=== PATIENT | male | born 1950 | race African-American/Black ===

== ENCOUNTER 2019-04-18 14:41 | Inpatient (IN) | payer MEDICARE ==
--- NOTE | 2019-04-18 19:28 | ULT ---
BILATERAL LOWER EXTREMITY VENOUS ULTRASOUND WITH DOPPLER: HISTORY: Edema. Swelling. COMPARISON: None. TECHNIQUE: Simon-scale, color-flow and Doppler imaging with spectral wave-form analysis was performed of the left and right lower extremity venous system. FINDINGS: RIGHT LOWER EXTREMITY: There is compressibility, presence of flow and augmentation in the common fem oral vein, femoral vein, and popliteal vein. There is flow in the greater saphenous vein, profunda f emoral vein and proximal posterior tibial vein. The mid to distal posterior tibial vein cannot be as sessed and flow is not evident due to soft tissue edema. LEFT LOWER EXTREMITY: There is compressibility, presence of flow and augmentation in the common femo ral vein, femoral vein, and popliteal vein. There is flow in the greater saphenous vein, profunda fe moral vein and proximal posterior tibial vein. The mid to distal posterior tibial vein cannot be ass essed due to soft tissue edema. IMPRESSION: Limited evaluation due to edema in both lower extremities. The mid and distal posterior tibial veins could not be assessed bilaterally. Therefore, the possibility of thrombus in either lower extremity mid to distal posterior tibial vein cannot be either confirmed or excluded. The remaining visualize d left and right lower extremity venous system did not demonstrate any thrombus. POS: PPP
[2019-04-18 19:53] LABS: #Basophils 0.1 thou/uL (0.0-0.2); #Eosinphils 0.5 thou/uL (0.0-0.7); #Monocytes 0.6 thou/uL (0.11-0.59); #Neutrophils 3.5 thou/uL (1.40-6.50); %Basophils 0.8 % (0.0-1.0); %Eosinophils 7.1 % (0.0-10.0); %Lymphocytes 30.7 % (21.0-51.0); %Monocytes 8.3 % (0.0-10.0); %Neutrophils 53.1 % (42.0-75.0); Mean Corpuscular HGB CONC 32.4 g/dL (32.0-36.0); Mean Corpuscular Hemoglobin 28.9 pg (27.0-31.0); Mean Corpuscular Volume 89.2 fL (78.0-98.0); Mean Platelet Volume 7.8 fL (7.4-10.4); Platelet Count 240 thou/uL (130-400); Red Blood Cell (RBC) Count 4.83 mill/uL (4.70-6.10); White Blood Cell (WBC) Count 6.6 thou/uL (4.8-10.8)
[2019-04-18 20:14] LABS: ALT (SGPT) 20 U/L (8-55); AST (SGOT) 23 U/L (5-34); Albumin 4.1 g/dL (3.4-4.8); Alkaline Phosphatase 83 U/L (40-150); Anion Gap 12 mmol/L (10-20); BUN (Urea Nitrogen) 11 mg/dL (8.4-25.7); Bilirubin, Total 0.5 mg/dL (0.2-1.2); Calc. Creatinine Clearance 0 mL/min (70-130); Calcium 9.2 mg/dL (7.8-10.44); Carbon Dioxide 24 mmol/L (23-31); Chloride 103 mmol/L (98-107); Estimated GFR-MDRD Greater than 90; Glucose 83 mg/dL (80-115); Protein, Total 8.1 g/dL (5.8-8.1); Sodium 135 mmol/L (136-145)
[2019-04-18] MEDS ORDERED: Furosemide 40 MG/4 ML VIAL ONE (20:50)
[2019-04-18] MEDS ORDERED: Nitroglycerin 2% Ointment 1 INCH/1 GM Packet ONE (20:50)
[2019-04-18 21:35] LABS: CK (CPK) 179 U/L (30-200); Lipase 8 U/L (8-78)
--- NOTE | 2019-04-18 22:10 | RAD ---
RADIOGRAPH CHEST 1 VIEW: DATE: 04/18/2019 HISTORY: 68-year-old male with dyspnea FINDINGS: The thoracic aorta is tortuous and ectatic. There is no evidence of airspace density, pulmonary edema , or pneumothorax. The lateral costophrenic angles are not effaced. Chronically elevated right hemidiaphragm with mild subsegmental atelectasis at right base. When compared to 09/22/2018, the right hemidiaphragm appears more elevated. IMPRESSION: 1) No acute pulmonary findings. 2) ectasia of thoracic aorta. 3) elevated right hemidiaphragm
[2019-04-18] MEDS ORDERED: Aspirin Chewable 81 MG TAB ONE (22:25)
[2019-04-19 01:05] VITALS: BMI 30.3
[2019-04-19] MEDS ORDERED: Guaifenesin DM 100-10/5 ML UDCUP PO PRN (14:32)
[2019-04-19] MEDS ORDERED: Senokot S 8.6-50 MG TAB PO PRN (14:32)
[2019-04-19] MEDS ORDERED: Acetaminophen 325 MG TAB PO PRN (14:32)
[2019-04-19] MEDS ORDERED: Bisacodyl 10 MG SUPP PR PRN (14:32)
--- NOTE | 2019-04-19 15:46 | HP ---
REASON FOR ADMISSION: Lower extremity edema, shortness of breath. HISTORY OF PRESENT ILLNESS: The patient gives history of progressive swelling of both lower extremities from last 3 to 4 weeks. This extended up to his scrotum as well. The patient states he is on a salt-restricted diet and follows diet as well. There are no complaints of chest pain or palpitation. He has known history of right inguinal hernia and has not been able to see a surgeon in the outpatient setting for the same. The patient states that his legs have thickened up now due to progressive swelling. He is not a good historian. PAST MEDICAL AND SURGICAL HISTORY: 1. History of CVA with prior left hemiparesis, currently not much residual left. 2. Hypertension. 3. Dyslipidemia. 4. Prior history of substance use and alcohol. CURRENT MEDICATIONS: 1. Lasix 20 mg daily. 2. Norvasc 10 mg daily. 3. Hydrochlorothiazide 25 mg daily. ALLERGIES: NO KNOWN DRUG ALLERGIES. PERSONAL HISTORY: Drinks 25-ounce beer x2 daily. Denies drug use and states he is clean for last 3 years now. Does not smoke. He lives alone. FAMILY HISTORY: Mother in her 70s and father in his 90s, both from old age as far as he knows. The patient himself is not . He has 3 boys and 2 girls. The older daughter committed suicide. The power of surveillance systems engineer is his niece, Ms. Jaycob Romero. The patient states he is not in contact with his children. CODE STATUS: Full. REVIEW OF SYSTEMS: CONSTITUTIONAL: Negative for weight loss or gain, ability to conduct usual activities. SKIN: Negative for rash, itching. EYES: Negative for double vision, pain. ENT/MOUTH: Negative for nose bleeding, neck stiffness, pain, tenderness. CARDIOVASCULAR: Negative for palpitations, dyspnea on exertion, orthopnea. RESPIRATORY: Negative for shortness of breath, wheezing, cough, hemoptysis, fever or night sweats. GASTROINTESTINAL: Negative for poor appetite, abdominal pain, heartburn, nausea , vomiting, constipation, or diarrhea. GENITOURINARY: Negative for urgency, frequency, dysuria, nocturia. MUSCULOSKELETAL: Negative for pain, swelling. NEUROLOGIC/PSYCHIATRIC: Negative for anxiety, depression. ALLERGY/IMMUNOLOGIC: Negative for skin rash, bleeding tendency. PHYSICAL EXAMINATION: GENERAL: The patient is a 68-year-old male, who is currently not in any acute distress. VITAL SIGNS: Blood pressure 148/80, pulse 60 per minute, respiratory rate 16 per minute, temperature 98.1 degrees Fahrenheit, saturating 97% on room air. NECK: Supple. No elevated JVD. HEENT: Eyes; extraocular muscles intact. Pupils reacting to light. Oral cavity; mucous membranes are moist. No exudates or congestion. CARDIOVASCULAR SYSTEM: S1-S2 heard. Regular rhythm. RESPIRATORY SYSTEM: Air entry 1+ bilateral. No rales or rhonchi. ABDOMEN: Soft. Bowel sounds heard. No tenderness, rigidity, or guarding. The patient has inguinal hernia on the right side. EXTREMITIES: There is 2+ peripheral edema. No calf tenderness. VASCULAR SYSTEM: Peripheral pulses 1+ bilateral. No ischemic ulcerations or gangrene. CENTRAL NERVOUS SYSTEM: No gross focal deficits noted. The patient is thin, moving all 4 extremities. PSYCHIATRIC SYSTEM: The patient's mood is euthymic. No hallucinations or delusions. LABORATORY DATA: EKG done shows sinus bradycardia at 51 beats per minute. White count of 6.6, hemoglobin 14, hematocrit 43, platelet count 240, MCV is 89 with 53% neutrophils. Electrolytes are stable. BUN 11. Creatinine 0.9. Troponin x1 negative. Liver enzymes are within normal limits. BNP is 105. Albumin is 4.1. IMAGING STUDIES: Chest x-ray done shows no acute pulmonary findings. Ultrasound venous Doppler of both lower extremities was limited due to edema. CLINICAL IMPRESSION AND PLAN: The patient will be admitted to telemetry for lower extremity edema which is progressively getting worse with shortness of breath. He also has right inguinal hernia. He has had a recent followup with Dr. Bejarano on March 23 and has had an echocardiogram done which showed an EF of 65% with moderate tricuspid regurgitation. The patient is scheduled for outpatient cardiac catheterization sometime in June per patient. We will place him on Lasix 40 mg at 6 a.m. and 2 p.m. We will also add a dose of Zaroxolyn for 2 days to help with diuresis. We will continue aspirin, Lipitor, and lisinopril for now. The patient likely has chronic lymphedema versus venous stasis edema, both of which is unclear clinically at present due to severe thickening of the skin with poor visualization of underlying structures. Job ID: [id number] [facility]
--- NOTE | 2019-04-19 18:16 | CON ---
DATE OF CONSULTATION: PRIMARY CARE DOCTOR: Dr. Mattson. PRIMARY CONCERT PROMOTER: Dr. Daphne Bejarano. REASON FOR CARDIOLOGY CONSULT: CHF exacerbation. HISTORY OF PRESENT ILLNESS: Mr. Ackerman is a very present 68-year-old male with a significant history of hypertension, CVA in 2016 with left-sided weakness,and cocaine abuse, quit 2016. The patient was followed up with Dr. Bejarano on 03/10/2019 for complaint of lower extremity edema for 5 months. The patient had echocardiogram done on 03/23/2019 with EF of 65% and diastolic dysfunction. The patient was doing well until couple of days ago. The patient's lower extremities are getting worse with discomfort. Today, the patient went to his PCP for further evaluation and treatment. The patient's PCP recommended the patient to present to the emergency department for further evaluation and treatment. The patient's BNP in the ER was 105. The patient received Lasix 40 mg IV push in the ER. He reports that his swelling in the lower extremities improved since that medication. Prior to present to the patient's primary care doctor's office today, the patient denied shortness of breath, chest pain, dizziness, lightheadedness, palpitation, fluttering in his chest, or any other complaints. The patient had echocardiogram done on 03/23/2019 with EF 65%, diastolic dysfunction, normal aortic and mitral valve regurgitation, and the patient had [id number]-[id number] tricuspid regurgitation. Per the patient, he never had any stress test or any other cardiac workup besides echocardiogram in 03/2019. The patient had a carotid Doppler study in 2016, which shows no significant stenosis seen in the bilateral ICA. The patient had a venogram done today, showing no thrombosis. PAST MEDICAL HISTORY: 1. Hypertension. 2. CVA in 2016 with left-sided weakness. 3. Cocaine drug abuse, which the patient quit in 2015. SURGICAL HISTORY: He never had any surgery before. FAMILY HISTORY: There are no significant cardiovascular disease in his family. SOCIAL HISTORY: He is single. He has 5 children who live well. He denied tobacco or illicit drug abuse at this moment. He drinks 1 large beer at least once a day, over the weekend he drinks a 6 pack of beer a day. He does not exercise and he does not watch his fluid or salt intake. He usually received food from food [employer], so he cannot watch his salt intake per the patient. ALLERGY: No known drug allergies. HOME MEDICATIONS: 1. Lasix 20 mg once a day. 2. Amlodipine 10 mg once a day. 3. Hydrochlorothiazide 25 mg once a day. 4. Ibuprofen as needed for the pain. REVIEW OF SYSTEMS: A 12-point review of systems is negative unless otherwise mentioned in HPI. The patient uses a walker due to the history of CVA in 2016. Otherwise, he does not have any significant complaints in the last 3 months except the lower extremity edema. PHYSICAL EXAMINATION: VITAL SIGNS: Blood pressure 148/81, temperature 97.6, pulse is 50 to 60, respiratory rate 16, and O2 saturation 95% on room air. GENERAL: The patient is alert and oriented x4, in no acute distress. HEAD: Normocephalic and atraumatic. EYES: Extraocular muscle movement intact. He uses glasses. NECK: Supple. Normal range of motion. No JVD. ENT and MOUTH: Oral and nasal mucosa moist without lesion. RESPIRATORY: Clear to auscultate bilaterally. No wheezing, rales, or rhonchi noted. CARDIOVASCULAR: Regular rate and rhythm. Normal S1 and S2. There is no S3 or S4. No significant murmur, hives, or thrill noted. 2+ pulses in bilateral upper extremities and right lower extremity. He has 1+ pulses in left dorsal pedis pulses and 2+ posterior tibial in popliteal arteries. He has nonpitting bilateral lower extremities with tightness and several blisters on his lower extremities. Carotid pulses are present without bruit or thrill. ABDOMEN: Soft and nontender. No mass to palpate. Bowel sounds are present. MUSCULOSKELETAL: The patient able to move all extremities without difficulty. The patient denies any claudication in the lower extremities. PSYCHIATRIC: The patient's mood is appropriate. NEUROLOGIC: The patient is alert and oriented x4. Nonfocal. LABORATORY DATA: WBC 6.6, hemoglobin 14.0, hematocrit 43.1, and platelets 240. Sodium 135, potassium 4.0, BUN 11, and creatinine 0.92. AST 23, ALT 20, and creatine kinase 179. Troponin is negative. BNP is 105. The patient's chest x-ray shows no acute pulmonary finding. Ectasia of thoracic aorta. Elevated right hemidiaphragm. ASSESSMENT AND PLAN: 1. Fbecc-uj-zwotzqn diastolic heart failure. The patient's condition is stable at this moment with room air. The patient states the patient's lower extremities have improved with Lasix IV. He has been on Lasix 40 IV push twice a day since today. The patient is on lisinopril 5 mg once a day and he is not on beta-chasity at this moment due to the bradycardia. The patient's creatinine level is stable at this moment. 2. Hypertension. The patient's blood pressure is stable with current medication. 3. ETOH abuse. ETOH cessation education given to the patient. Thank you very much for Cardiology Service to participate in the care of patient. We will follow along the patient's care team and make further recommendations as appropriate. Job ID: [id number]
[2019-04-19] MEDS: Atorvastatin Calcium 10 MG TAB PO SCH (19:57)
[2019-04-19] MEDS: Famotidine 20 MG TAB PO SCH (19:57)
--- NOTE | 2019-04-19 22:07 | CON ---
DATE OF CONSULTATION: 04/19/2019 INDICATION FOR CONSULTATION: A 68-year-old patient with lower extremity edema and evidence of possible congestive heart failure. HISTORY OF PRESENT ILLNESS: This very unfortunate 68-year-old gentleman, who has been noncompliant with medical management and watching his fluid intake. He has a history of hypertension. He suffered a CVA in 2016. He has had some history of cocaine abuse also in 2016. He was seen previously in the office and had an echocardiogram performed, which showed an ejection fraction of about 65%. He does have diastolic dysfunction. He has had the history of diastolic dysfunction. He does have some [id number]-[id number] tricuspid valve regurgitation. He was being evaluated, I believe to undergo a stress test. I do not believe the stress test has yet been performed. He apparently over the last several days has noted that he had had increasing swelling in the lower extremities. However, he was seen in the office back on the 10 of March of this year. He also had significant lower extremity edema. He also had a venogram performed, which showed no evidence of thrombosis. He certainly may have some evidence of venous insufficiency. However, it appears this may be more due to his diastolic heart failure. At this time, he denied any chest pain. He mainly came into the emergency room , he said because his legs were hurting, because they were so edematous. He has had improvement now that he has been given IV diuretics and the legs were elevated. PAST MEDICAL HISTORY: Please refer to the notes dictated by the nurse Mike chase. SOCIAL HISTORY: Please refer to the notes dictated by the nurse Mike chase. FAMILY HISTORY: Please refer to the notes dictated by the nurse Mike chase. REVIEW OF SYSTEMS: Please refer to the notes dictated by the nurse Mike chase. MEDICATIONS: Please refer to the notes dictated by the nurse Mike chase. ALLERGIES: PLEASE REFER TO THE NOTES DICTATED BY THE NURSE MIKE CHASE. PHYSICAL EXAMINATION: GENERAL: Reveals an elderly gentleman, in no acute distress at this time. He is alert and oriented. VITAL SIGNS: Blood pressure 142/81. He is afebrile. Heart rates in the 60s, shows a normal sinus rhythm, O2 saturation 95%, respiratory rate 16. HEENT: Unremarkable. He is normocephalic and atraumatic. He has no JVD noted. The carotid pulses are present. CHEST: Clear to auscultation without rales, rhonchi, or wheezing. CARDIOVASCULAR: Reveals a regular rate and rhythm. He had no significant murmurs, heaves, thrills, bruits, or rubs. He does have a soft systolic murmur at the apex. ABDOMEN: Soft and nontender. Positive bowel sounds are present. EXTREMITIES: Show no clubbing or cyanosis. He does have 2 to 3+ lower extremity edema, which is chronic in nature with skin thickening due to the chronic edema. Pedal pulses are difficult to palpate, but are present. NEUROLOGIC: The patient appears to be intact. SKIN: Warm and dry. LABORATORY DATA: Shows a creatinine of 0.92, hemoglobin 14. BNP was 105. Chest x-ray was unremarkable. IMPRESSION: 1. Sprxv-kh-vimnhsd heart failure, which is most likely diastolic in nature with lower extremity edema. We would agree with diuretics at this time. We will continue his other medications. We will add a beta chasity, if at all possible. However, his heart rate has been in the 50s and would not be a good idea in this patient who is already bradycardic. Renal function appears to be normal. May add a low dose of Ranexa, if he continues to have symptoms once he is volume restricted and then understands he cannot be taking increased salt in load, then perhaps his symptoms will improve and once the blood pressure also remains under control, he was also advised that he needs to decrease his amount of alcohol intake. We more than happy to continue to follow the patient with you, but will need to treat him symptomatically depending on whether or not he responds to the diuretics. Job ID: [id number] [facility]
[2019-04-20 05:19] LABS: #Eosinphils 0.4 thou/uL (0.0-0.7); #Lymphocytes 1.8 thou/uL (1.20-3.40); #Monocytes 0.6 thou/uL (0.11-0.59); #Neutrophils 3.1 thou/uL (1.40-6.50); %Basophils 0.6 % (0.0-1.0); %Eosinophils 6.3 % (0.0-10.0); %Lymphocytes 30.2 % (21.0-51.0); %Monocytes 10.3 % (0.0-10.0); %Neutrophils 52.7 % (42.0-75.0); Hemoglobin 13.2 g/dL (14.0-18.0); Mean Corpuscular HGB CONC 32.5 g/dL (32.0-36.0); Mean Corpuscular Hemoglobin 28.7 pg (27.0-31.0); Mean Corpuscular Volume 88.4 fL (78.0-98.0); Mean Platelet Volume 7.9 fL (7.4-10.4); Platelet Count 231 thou/uL (130-400); RBC Distribution Width 13.1 % (11.5-14.5); Red Blood Cell (RBC) Count 4.59 mill/uL (4.70-6.10); White Blood Cell (WBC) Count 5.9 thou/uL (4.8-10.8)
[2019-04-20 05:40] LABS: Anion Gap 9 mmol/L (10-20); BUN (Urea Nitrogen) 11 mg/dL (8.4-25.7); Calc. Creatinine Clearance 99 mL/min (70-130); Calcium 8.8 mg/dL (7.8-10.44); Carbon Dioxide 26 mmol/L (23-31); Chloride 104 mmol/L (98-107); Estimated GFR-MDRD Greater than 90; Glucose 79 mg/dL (80-115); Potassium 4.3 mmol/L (3.5-5.1); Sodium 135 mmol/L (136-145)
[2019-04-20] MEDS: Furosemide 40 MG/4 ML VIAL SLOW IVP SCH ×2 (07:30→14:39)
[2019-04-20] MEDS: Famotidine 20 MG TAB PO SCH ×2 (09:38→19:49)
[2019-04-20] MEDS: Lisinopril 5 MG TAB PO SCH (09:38)
[2019-04-20] MEDS: Aspirin 81 mg Enteric Coated Tablet PO SCH (09:38)
[2019-04-20] MEDS: Enoxaparin Sodium 40 MG/0.4 ML SYRINGE SC SCH (09:39)
--- NOTE | 2019-04-20 11:20 | PDOC.CPN ---
- Subjective Date: 04/20/19 Time: 11:23 Interval history: The pt seen and examined. No overnight events. No cardiac complaints. His BLE edema have been improving - Objective Allergies/Adverse Reactions: Allergies Allergy/AdvReac Type Severity Reaction Status Date / Time No Known Allergies Allergy Verified 02/13/14 15:33 Visit Medications: Current Medications Acetaminophen (Tylenol) 650 mg PO Q4H PRN PRN Reason: Headache/Fever/Mild Pain (1-3) Aspirin (Ecotrin) 81 mg PO DAILY [facility] Last Admin: 04/20/19 09:38 Dose: 81 mg Atorvastatin Calcium (Lipitor) 10 mg PO HS [facility] Last Admin: 04/19/19 19:57 Dose: 10 mg Bisacodyl (Dulcolax) 10 mg [place] DAILYPRN PRN PRN Reason: Constipation Carvedilol (Coreg) 3.125 mg PO BID-[facility] Enoxaparin Sodium (Lovenox) 40 mg SC 0900 [facility] Last Admin: 04/20/19 09:39 Dose: 40 mg Famotidine (Pepcid) 20 mg PO BID [facility] Last Admin: 04/20/19 09:38 Dose: 20 mg Furosemide (Lasix) 40 mg SLOW IVP 0600,1400 [facility] Last Admin: 04/20/19 07:30 Dose: 40 mg Guaifenesin/Dextromethorphan (Robitussin Dm) 15 ml PO Q4H PRN PRN Reason: Cough Lisinopril (Zestril) 5 mg PO DAILY [facility] Last Admin: 04/20/19 09:38 Dose: 5 mg Senna/Docusate Sodium (Senokot S) 2 tab PO BID PRN PRN Reason: Constipation Vital Signs & Weight: Vital Signs Temp Pulse Resp BP BP Pulse Ox 04/20/19 09:38 65 143/89 H 04/20/19 07:32 97.4 F L 65 18 143/89 H 95 04/20/19 04:00 58 L 16 148/88 H 98 04/20/19 03:00 58 L 16 148/88 H 98 04/20/19 00:00 53 L 16 Weight 190 lb 1.6 oz - Physical Exam General: alert & oriented x3 Cardiac: S1/S2 Lungs: clear to auscultation Musculoskeletal: decreased range of motion - Labs Result Diagrams: 04/20/19 04:58 04/20/19 04:58 Troponin/CKMB Troponin I Less than 0.010 ng/mL (< 0.028) 04/18/19 21:13 - Telemetry Sinus rhythms and dysrhythmias: sinus rhythm - Assessment/Plan Assessment/Plan: 1. Acute on Chronic diastolic HF - improving with Lasix 40mg IV BID and Lisinopril 5mg qd; will start coreg 3.125mg BID for hx of CHF and tachycardia with movement 2. HTN - will start Coreg 3.125mg BID from today 3. hx of CVA in 2016 - 4. ETOH abuse - Strongly recommend ETOH cessation MAR reviewed Pt. seen and eval. by me. I agree with the A/P by the CHIEF CREDIT OFFICER. Legs are less edematous. No chest discomfort or SOB. Chest clear. RRR.
--- NOTE | 2019-04-20 13:54 | PDOC.HOSPP ---
- Subjective Encounter Date: 04/20/19 Encounter Time: 11:30 Subjective: no sob, is diuresing well ambulating in room - Objective Vital Signs & Weight: Vital Signs (12 hours) Temp Pulse Pulse Pulse Resp BP BP 04/20/19 11:33 97.4 F L 70 18 04/20/19 10:40 72 80 175/99 H 04/20/19 09:38 65 143/89 H 04/20/19 07:32 97.4 F L 65 18 04/20/19 04:00 58 L 16 04/20/19 03:00 58 L 16 BP BP BP Pulse Ox 04/20/19 11:33 136/92 H 98 04/20/19 10:40 149/105 H 04/20/19 09:38 04/20/19 07:32 143/89 H 95 04/20/19 04:00 148/88 H 98 04/20/19 03:00 148/88 H 98 Weight Weight 190 lb 1.6 oz I&O: 04/19/19 04/20/19 04/21/19 06:59 06:59 06:59 Intake Total 0 920 Output Total 750 1850 Balance -750 -930 Result Diagrams: 04/20/19 04:58 04/20/19 04:58 Hospitalist ROS - Medication Medications: Active Medications Generic Name Dose Route Start Last Admin Trade Name [place] PRN Reason Stop Dose Admin Aspirin 81 mg 04/20/19 09:00 04/20/19 09:38 Ecotrin PO 81 mg DAILY TAMIA Administration Atorvastatin Calcium 10 mg 04/19/19 21:00 04/19/19 19:57 Lipitor PO 10 mg HS TAMIA Administration Enoxaparin Sodium 40 mg 04/20/19 09:00 04/20/19 09:39 Lovenox SC 40 mg 0900 TAMIA Administration Famotidine 20 mg 04/19/19 21:00 04/20/19 09:38 Pepcid PO 20 mg BID TAMIA Administration Furosemide 40 mg 04/20/19 06:00 04/20/19 07:30 Lasix SLOW IVP 40 mg 0600,1400 TAMIA Administration Lisinopril 5 mg 04/20/19 09:00 04/20/19 09:38 Zestril PO 5 mg DAILY TAMIA Administration - Exam General Appearance: NAD, awake alert Eye: PERRL, anicteric sclera ENT: normocephalic atraumatic, no oropharyngeal lesions Neck: supple, no JVD Heart: RRR, no murmur Respiratory: no wheezes, no rales Gastrointestinal: soft, non-tender, normal bowel sounds Gastrointestinal - other findings: large inguinal hernia Extremities: no cyanosis, 2+ LE edema Neurological: CN's grossly intact, no focal deficits Hosp A/P (1) Acute exacerbation of CHF (congestive heart failure) Code(s): I50.9 - HEART FAILURE, UNSPECIFIED Status: Acute Qualifiers: Heart failure type: diastolic Qualified Code(s): I50.33 - Acute on chronic diastolic (congestive) heart failure (2) H/O: CVA (cerebrovascular accident) Code(s): Z86.73 - PRSNL HX OF TIA (TIA), AND CEREB INFRC W/O RESID DEFICITS Status: Chronic (3) Dyslipidemia Code(s): E78.5 - HYPERLIPIDEMIA, UNSPECIFIED Status: Chronic (4) Lower extremity edema Code(s): R60.0 - LOCALIZED EDEMA Status: Acute (5) Hypertension Code(s): I10 - ESSENTIAL (PRIMARY) HYPERTENSION Status: Chronic Qualifiers: Hypertension type: essential hypertension Qualified Code(s): I10 - Essential (primary) hypertension - Plan continue iv lasix, sera hose to LE likely has component of either lymphatic or venous stasis in LE, will need outpt w/u for the same on asp, lipitor, lisinopril pt is bradycardic, no BB hemostable Likely dc plan in am if stable and ambulating well
[2019-04-20] MEDS: Carvedilol 3.125 MG TAB PO SCH (16:22)
[2019-04-20] MEDS: Atorvastatin Calcium 10 MG TAB PO SCH (19:49)
[2019-04-21 05:01] LABS: Anion Gap 12 mmol/L (10-20); BUN (Urea Nitrogen) 12 mg/dL (8.4-25.7); Calc. Creatinine Clearance 82 mL/min (70-130); Calcium 9.6 mg/dL (7.8-10.44); Carbon Dioxide 29 mmol/L (23-31); Chloride 99 mmol/L (98-107); Estimated GFR-MDRD 88; Glucose 74 mg/dL (80-115); Potassium 3.7 mmol/L (3.5-5.1); Sodium 136 mmol/L (136-145)
[2019-04-21] MEDS: Furosemide 40 MG/4 ML VIAL SLOW IVP SCH (06:24)
[2019-04-21 07:07] VITALS: BP 144/90; TEMP 97.5
[2019-04-21] MEDS ORDERED: Sodium Chloride 0.9% 10 ML ONE (07:52)
[2019-04-21] MEDS: Enoxaparin Sodium 40 MG/0.4 ML SYRINGE SC SCH (08:44)
[2019-04-21] MEDS: Carvedilol 3.125 MG TAB PO SCH (08:44)
[2019-04-21] MEDS: Famotidine 20 MG TAB PO SCH (08:44)
[2019-04-21] MEDS: Lisinopril 5 MG TAB PO SCH (08:44)
[2019-04-21] MEDS: Aspirin 81 mg Enteric Coated Tablet PO SCH (08:44)
--- NOTE | 2019-04-21 11:20 | PDOC.CPN ---
- Subjective Date: 04/21/19 Time: 11:20 Interval history: The pt seen and examined. No overnight events. No cardiac complaints. - Objective Allergies/Adverse Reactions: Allergies Allergy/AdvReac Type Severity Reaction Status Date / Time No Known Allergies Allergy Verified 02/13/14 15:33 Visit Medications: Current Medications Acetaminophen (Tylenol) 650 mg PO Q4H PRN PRN Reason: Headache/Fever/Mild Pain (1-3) Aspirin (Ecotrin) 81 mg PO DAILY [facility] Last Admin: 04/21/19 08:44 Dose: 81 mg Atorvastatin Calcium (Lipitor) 10 mg PO HS [facility] Last Admin: 04/20/19 19:49 Dose: 10 mg Bisacodyl (Dulcolax) 10 mg [place] DAILYPRN PRN PRN Reason: Constipation Carvedilol (Coreg) 3.125 mg PO BID-[facility] Last Admin: 04/21/19 08:44 Dose: 3.125 mg Enoxaparin Sodium (Lovenox) 40 mg SC 0900 [facility] Last Admin: 04/21/19 08:44 Dose: 40 mg Famotidine (Pepcid) 20 mg PO BID [facility] Last Admin: 04/21/19 08:44 Dose: 20 mg Furosemide (Lasix) 40 mg PO 0900,1400 [facility] Guaifenesin/Dextromethorphan (Robitussin Dm) 15 ml PO Q4H PRN PRN Reason: Cough Lisinopril (Zestril) 5 mg PO DAILY [facility] Last Admin: 04/21/19 08:44 Dose: 5 mg Senna/Docusate Sodium (Senokot S) 2 tab PO BID PRN PRN Reason: Constipation Vital Signs & Weight: Vital Signs Temp Pulse Resp BP Pulse Ox 04/21/19 08:45 110 H 04/21/19 08:44 59 L 04/21/19 07:01 97.5 F L 59 L 18 144/90 H 97 04/21/19 03:15 98.6 F 56 L 14 132/84 97 04/21/19 00:00 97.7 F 60 14 139/97 H 95 Weight 182 lb 9.6 oz - Physical Exam General: alert & oriented x3 Neck: supple neck Cardiac: regular rate and rhythm, S1/S2 Lungs: clear to auscultation Skin: other (BLE edema with Stasis dermatitis) Musculoskeletal: normal range of motion - Labs Result Diagrams: 04/20/19 04:58 04/21/19 03:49 Troponin/CKMB Troponin I Less than 0.010 ng/mL (< 0.028) 04/18/19 21:13 - Telemetry Sinus rhythms and dysrhythmias: sinus rhythm - Assessment/Plan Assessment/Plan: 1. Acute on Chronic diastolic HF - improving with Lasix 40mg IV BID, Lisinopril 5mg qd, and coreg 3.125mg BID for hx of CHF and tachycardia with movement; Lasix will be changed to PO from this afternoon. 2. HTN - stable with Lisinopril and Coreg 3.125mg BID 3. hx of CVA in 2016 - 4. ETOH abuse - Strongly recommend ETOH cessation MAR reviewed * The pt may d/c home tomorrow
[2019-04-21] MEDS ORDERED: Furosemide 40 MG TAB PO SCH (14:00)
--- NOTE | 2019-04-23 15:27 | EKG ---
Test Reason : Blood Pressure : / mmHG Vent. Rate : 051 BPM Atrial Rate : 051 BPM P-R Int : 238 ms QRS Dur : 098 ms QT Int : 482 ms P-R-T Axes : 032 -14 030 degrees QTc Int : 444 ms Sinus bradycardia with 1st degree A-V block Nonspecific T wave abnormality Abnormal ECG Confirmed by MIQUEL NJ, LUDIVINA ([id number]), film and video editor ANJUM TELLES ([id number]) on 04/23/2019 3:26:34 PM Referred By: Confirmed By:LUDIVINA LAFLEUR MD
== END 2019-04-21 13:08 | disposition home or self-care (01) | DRG 293 ==
LOC: ERS 14:41 → 2NO 04-19 01:00
PROVIDERS: ADMIT Hospitalist; ATTEND Hospitalist
DX: I11.0 Hypertensive heart disease with heart failure (principal); I50.33 Acute on chronic diastolic (congestive) heart failure; I25.10 Atherosclerotic heart disease of native coronary artery without angina pectoris; F10.10 Alcohol abuse, uncomplicated; E78.5 Hyperlipidemia, unspecified; K40.90 Unilateral inguinal hernia, without obstruction or gangrene, not specified as recurrent; F14.10 Cocaine abuse, uncomplicated; Z86.73 Personal history of transient ischemic attack (TIA), and cerebral infarction without residual deficits; Z91.14 Patient's other noncompliance with medication regimen
CPT/HCPCS: 36415; 71045; 80048; 80053; 82550; 83690; 83880; 84484; 85025; 93005; 93798; 93970; 96374; J1650; J1940

== ENCOUNTER 2020-08-12 18:30 | Inpatient (IN) | payer MEDICARE ==
[~2020-08-12 18:30] MED LIST: Iopamidol-370 76% 500 ML 1 ML ONE
[2020-08-12] MEDS ORDERED: Ondansetron PF 4 MG/2 ML Vial ONE ×2 (18:35→18:37)
[2020-08-12] MEDS ORDERED: niCARdipine 20MG In NaCl 20 MG/200 ML BAG ONE (18:40)
--- NOTE | 2020-08-12 18:54 | CT ---
CT HEAD WITHOUT IV CONTRAST COMPARISON: 07/10/2016. HISTORY: Level 1 stroke. Left-sided weakness and left-sided facial droop. Vomiting. Hypertension. TECHNIQUE: Axial CT imaging at 5 mm intervals from vertex through skull base without contrast FINDINGS: There is an oval-shaped area of increased density seen in the left cerebellar hemisphere measuring 3. 6 cm x 2.1 cm in greatest axial dimensions most compatible with parenchymal hematoma. Adjacent edema is present. There is mass effect on the left cerebellar hemisphere including mild mass effect o n the fourth ventricle. No additional intraparenchymal or extra-axial hemorrhage is identified. There is decreased attenuation in the periventricular white matter which is nonspecific but likely re flective of chronic small vessel ischemic changes. Low-attenuation area is seen in the right periventricular white matter likely due to cavitated remote white matter infarction. There is no evid ence of an acute cortical infarction. No midline shift is seen There is mild cerebral volume loss. The ventricular system is normal in size, shape, and position for the degree of sulcal atrophy. Skull base has a normal CT appearance. Visualized paranasal sinuses are clear. Osseous structures appear intact. No calvarial fracture is seen. IMPRESSION: 1. Parenchymal hematoma and adjacent edema in the left cerebellar hemisphere. This does result in mil d mass effect on the left cerebellar hemisphere and the fourth ventricle. Differential considerations would include trauma, coagulopathy, or possibly underlying lesion. Follow-up evaluatio n after resolution of hemorrhage is recommended with MRI with and without IV contrast. 2. Chronic changes. 3. Above findings discussed with Dr. Mesa in the emergency department on 08/12/2020 at 1849 hours.
[2020-08-12 19:10] LABS: PTT 25.8 sec (22.9-36.1); Prothrombin Time 13.1 sec (12.0-14.7)
[2020-08-12] MEDS ORDERED: Promethazine HCl 25 MG/ML VIAL ONE (19:12)
[2020-08-12 19:18] LABS: #Eosinphils 0.1 thou/uL (0.0-0.7); #Lymphocytes 1.5 thou/uL (1.20-3.40); #Monocytes 0.7 thou/uL (0.11-0.59); #Neutrophils 6.2 thou/uL (1.40-6.50); %Basophils 0.2 % (0.0-1.0); %Eosinophils 1.5 % (0.0-10.0); %Lymphocytes 17.9 % (21.0-51.0); %Monocytes 8.1 % (0.0-10.0); %Neutrophils 72.4 % (42.0-75.0); Mean Corpuscular HGB CONC 33.1 g/dL (32.0-36.0); Mean Corpuscular Volume 90.6 fL (78.0-98.0); Mean Platelet Volume 5.6 fL (7.4-10.4); Platelet Count 173 thou/uL (130-400); RBC Distribution Width 12.4 % (11.5-14.5); Red Blood Cell (RBC) Count 4.33 mill/uL (4.70-6.10); White Blood Cell (WBC) Count 8.6 thou/uL (4.8-10.8)
[2020-08-12 19:25] LABS: ALT (SGPT) 16 U/L (8-55); AST (SGOT) 21 U/L (5-34); Alkaline Phosphatase 74 U/L (40-110); Anion Gap 17 mmol/L (10-20); BUN (Urea Nitrogen) 11 mg/dL (8.4-25.7); Bilirubin, Total 0.4 mg/dL (0.2-1.2); Calc. Creatinine Clearance 0 mL/min (70-130); Calcium 8.6 mg/dL (7.8-10.44); Carbon Dioxide 21 mmol/L (23-31); Chloride 103 mmol/L (98-107); Globulin 3.7 g/dL (2.4-3.5); Glucose 128 mg/dL (83-110); Magnesium 1.9 mg/dL (1.6-2.6); Potassium 3.7 mmol/L (3.5-5.1); Protein, Total 7.7 g/dL (5.8-8.1); Sodium 137 mmol/L (136-145)
--- NOTE | 2020-08-12 19:31 | CT ---
EXAM: CT angiogram head and neck with IV contrast and 3-D reconstructions PROVIDED CLINICAL HISTORY: Level 1 stroke. Left-sided weakness and facial droop. Left cerebellar hemorrhage. COMPARISON: Noncontrast CT head on this date. FINDINGS: There is a normal arrangement of the great vessels at the aortic arch which do appear patent. Left schultz bclavian artery is mostly obscured due to dense contrast in the left subclavian vein. Portion of the proximal left common carotid artery are also obscured due to adjacent artifact from venous contra st. The innominate artery and right subclavian artery as well as right common carotid artery and remainder of the left common carotid artery are widely patent. There is mild atherosclerotic plaque involving the distal common carotid arteries bilaterally. There is calcified atherosclerotic plaque at the carotid artery bifurcations. The left internal carotid artery is patent. There is only minimal narrowing of the proximal right internal carotid artery. The vertebral arteries are small in caliber bilaterally but codominant and patent. The basilar artery is miniscule in size, and the vertebral arteries predominantly terminate in PICA. There are type origins involving the bilateral posterior cerebral arteries which are patent. The bilateral middle cerebral and anterior cerebral arteries are patent. No focal intracranial aneurysm is seen. Mild groundglass densities are seen within the dependent portion of the lungs bilaterally likely rela sera to volume loss. As noted on noncontrast CT of the head, there is a parenchymal hematoma in the left cerebellar hemisp here with surrounding edema and mild mass effect on the adjacent fourth ventricle. The visualized dural venous sinuses appear patent. Multilevel degenerative changes are seen in the spine. Periapical lucency is seen involving the left maxillary molar suggesting periapical abscess. Dental c natalio are present in the right maxillary molars. IMPRESSION: 1. Mild atherosclerotic plaque in the carotid artery bifurcations bilaterally, the bilateral internal carotid arteries are patent. 2. No focal stenosis or branch occlusion is seen involving the wrangell of [place]stein. 3. Vertebral arteries are very small in caliber with very miniscule basilar artery. Prominent patent type origins of each posterior cerebral artery are seen. 4. No intracranial aneurysm is seen. 5. Left cerebellar parenchymal hemorrhage with adjacent edema. 6. Biapical lucencies suggesting peritoneal abscess involving left maxillary molar. Dental caries are seen in a right maxillary molar. 7. Above findings discussed Dr. Mesa in the emergency department on 08/12/2020 at 1928 hours. Reported By: Isaac Sanzally Signed: 08/12/2020 7:29 PM
--- NOTE | 2020-08-12 19:55 | RAD ---
EXAM: CHEST ONE VIEW HISTORY: Altered mental status. COMPARISON: 04/18/2019 FINDINGS: Cardiac silhouette is enlarged. Pulmonary vasculature is within normal limits. Mild elevation right h emidiaphragm with volume loss right lung base is again seen. Left lung is clear. Radiopaque densities overlie the left axillary region which were not seen on prior study and could be related to overlying artifact or radiopaque foreign bodies. Prominent left glenohumeral osteoarthropathy is present with degenerative changes in the spine. IMPRESSION: 1. Overall stable chest with elevation right hemidiaphragm with volume loss right lung base. 2. Mild cardiomegaly. 3. Irregular shaped densities overlying left axilla. This could be related to overlying artifact or r adiopaque foreign bodies. Clinical correlation is suggested.
[2020-08-12] MEDS ORDERED: Tranexamic Acid 1,000 MG/10 ML VIAL ONE (20:01)
[2020-08-12] MEDS ORDERED: niCARdipine 50 MG in Sodium Chloride 0.9% 250 ML 230 ML IV SCH ×2 (20:15→20:45)
[2020-08-12] MEDS ORDERED: niCARdipine 40MG In NaCl 40 MG/200 ML BAG IVPB SCH (20:15)
--- NOTE | 2020-08-12 21:01 | PDOC.HHP ---
Hospitalist HPI - History of Present Illness Altered mental status History of Present Illness: This is 70-year-old male patient with a history of stroke, hypertension who was brought in by EMS on account of altered mental status. Initial assessment on arrival noted he had an intracerebral bleed. Patient notes that he went to visit her friend and on returning suddenly fell to the floor. His friend called EMS who came in to evaluate him and brought him here for further evaluation. On the site EMS notes notes that he had fallen and hit his head with noted facial droop with left-sided weakness. Patient however tells me that he has had left-sided weakness since his previous stroke about 4 years ago. EMS noted blood pressure was 202/112, he was given labetalol 10 mg prior to transportation. At the time of my evaluation patient seems generally lucid but had slight intermittent confusion. At presentation here patient's blood pressure was 180/93, pulse 56, saturation 98 on room air with respiratory rate of 17. He was afebrile temperature of 98. His labs showed mild anemia of 13.2, otherwise no remarkable changes. CT scan of his head showed parenchymal hematoma and adjacent edema in the left cerebral hemisphere with mild mass-effect on the left cerebellar hemisphere and 4th ventricle. CTA showed mild atherosclerotic plaques in the carotid artery bifurcations bilaterally. Chest x-ray revealed overall stable elevated left hemidiaphragm with volume loss of right lung base. Patient was started on nicardipine drip for blood pressure control. Neurosurgery was consulted. Hospitalist team consulted for admission. Hospitalist ROS - Review of Systems Constitutional: denies: fever, chills, sweats, weakness Respiratory: denies: cough, shortness of breath, hemoptysis Gastrointestinal: reports: nausea. denies: vomiting, abdominal pain Neurological: reports: weakness. denies: numbness, incoordination, change in speech All other systems reviewed; all pertinent +/- noted in HPI/Subj - Medication Medications: Medications: Hospitalist History - Past Medical History Other Medical History: Stroke, hypertension - Family History Family History: reports: no pertinent history - Exam General Appearance: awake alert General - other findings: Sounds slightly confused. Eye: PERRL, anicteric sclera ENT: normocephalic atraumatic, no oropharyngeal lesions Heart: RRR, no murmur, no gallops, no rubs Respiratory: CTAB, no wheezes, no rales, tachypneic Gastrointestinal: soft, non-tender, non-distended, normal bowel sounds, no palpable masses Extremities: no cyanosis, no clubbing, no edema Neurological - other findings: Speech slightly dysarthric, no facial droop. L eft-sided residual weakness Psychiatric: A&O x 3, flat affect Hospitalist Results - Labs Result Diagrams: 08/12/20 19:03 08/12/20 18:53 Lab results: WBC 8.6 thou/uL (4.8-10.8) 08/12/20 19:03 Hgb 13.0 g/dL (14.0-18.0) L 08/12/20 19:03 Hct 39.2 % (42.0-52.0) L 08/12/20 19:03 MCV 90.6 fL (78.0-98.0) 08/12/20 19:03 Plt Count 173 thou/uL (130-400) 08/12/20 19:03 Neutrophils % 72.4 % (42.0-75.0) 08/12/20 19:03 Sodium 137 mmol/L (136-145) 08/12/20 18:53 Potassium 3.7 mmol/L (3.5-5.1) 08/12/20 18:53 Chloride 103 mmol/L (98-107) 08/12/20 18:53 Carbon Dioxide 21 mmol/L (23-31) L 08/12/20 18:53 BUN 11 mg/dL (8.4-25.7) 08/12/20 18:53 Creatinine 0.90 mg/dL (0.7-1.3) 08/12/20 18:53 Glucose 128 mg/dL (83-110) H 08/12/20 18:53 Calcium 8.6 mg/dL (7.8-10.44) 08/12/20 18:53 Total Bilirubin 0.4 mg/dL (0.2-1.2) 08/12/20 18:53 AST 21 U/L (5-34) 08/12/20 18:53 ALT 16 U/L (8-55) 08/12/20 18:53 Alkaline Phosphatase 74 U/L (40-110) 08/12/20 18:53 Troponin I Less than 0.010 ng/mL (< 0.028) 08/12/20 19:03 Serum Total Protein 7.7 g/dL (5.8-8.1) 08/12/20 18:53 Albumin 4.0 g/dL (3.4-4.8) 08/12/20 18:53 Hospitalist H&P A/P - Plan Plan: This is a 70-year-old male patient with a history of stroke, hypertension who was brought in on account of altered mental status by EMS subsequently noted to have left intracerebral hemorrhage. Intracerebral hemorrhage We will admit to ICU Start nicardipine drip to maintain blood pressure between 140 and 160. No neurosurgical intervention at the moment. Neurosurgery following. Hypertension We will treat blood pressure as above Close monitoring Acute encephalopathy Likely secondary to intracerebral bleed Significantly improvedcontinue monitoring. VT prophylaxis SCD
[2020-08-12] MEDS: Sodium Chloride 0.9% 1,000 ML IV SCH (21:08)
[2020-08-12] MEDS: niMODipine 30 MG CAP PO SCH (21:33)
[2020-08-12 22:19] LABS: SARS-CoV-2 NAA Rapid Test Not Detected (NotDetected)
--- NOTE | 2020-08-12 23:27 | CON ---
DATE OF CONSULTATION: 08/12/2020 CHIEF COMPLAINT: Altered mental status with left-sided weakness. HISTORY OF PRESENT ILLNESS: Mr. Ackerman is a 70-year-old gentleman with a history of ischemic stroke in 2016. He presents to EMS with altered mental status and left-sided weakness with an SBP of 220. The patient was brought to [facility], where his BP on arrival was SBP of 180. He tells me 3-4 hours ago, he got dizzy and fell at home. It is reported that the patient does have bedbugs. He does have some left-sided weakness and left-sided facial droop. CTA of the head indicated a small left upper cerebral hemorrhage. Per imaging shows a tiny area of potential hemosiderin on that area. This may be a cavernous malformation. The CTA shows PComm arteries on both sides. There is a diminutive bacillary artery. There was adequate room in the 4th ventricle. REVIEW OF SYSTEMS: Negative unless indicated in the above HPI. PAST MEDICAL HISTORY: Ischemic stroke in 2016 and hypertension. SURGICAL HISTORY: Unknown. HOSPITALIZATIONS: Unknown. SOCIAL HISTORY: Denies nicotine or illicit drug use. States he drinks 6-10 beers daily. MEDICATIONS: 1. Torsemide 100 mg. 2. Hydrochlorothiazide 25 mg. ALLERGIES: NO KNOWN DRUG ALLERGIES. PHYSICAL EXAMINATION: VITAL SIGNS: BP 180/93, 159/91, pulse 65, and temperature 98.4. CONSTITUTION: The patient is slightly confused. HEENT: Pupils are equal. Extraocular movements are intact. NECK: Soft, supple. No masses are noted. Range of motion is intact. NEUROLOGICAL: He is awake. The patient is oriented to person and place. Memory is slightly abnormal. Left-sided facial droop. Left-sided motor weakness. Unable to hold hand above bed for more than 3 seconds. Left lower extremity, unable to hold left lower extremity above the bed for more than 3 seconds. Equal sensation bilaterally. Decreased group exercise manager strength on the left. LABORATORY DATA: WBC 8.6, platelets 173. PT 13.1, INR 1.0, PTT 25.8, sodium 137. IMAGING: Head CT indicates a small left upper cerebral hemorrhage. Prior imaging shows a tiny area of potential hemosiderin on that area. There may be a cavernous malformation. CTA of the head shows a PComm arteries on both sides. There is diminutive bacillary artery. There is adequate room in the 4th ventricle. ASSESSMENTS: 1. Altered mental status. 2. Left-sided weakness with facial droop. 3. Left upper cerebral hemorrhage. PLAN: TXA, Cardene, morphine, Phenergan, and Zofran were given in the emergency room. Nimodipine was also started in the ED to prevent vasospasms. Cardene drip. Goal for SBP is less than 140 mmHg. Repeat the head CT and CTA in the morning for comparison. Supportive care. If BP and sodium are controlled, then there is a low probability requiring surgery. We will have EVD kit at bedside in case deterioration with worsening hydrocephalus on CT in the morning. Job ID: [id number]
[2020-08-13] MEDS: niMODipine 30 MG CAP PO SCH ×7 (00:05→23:49)
[2020-08-13 05:12] LABS: Anion Gap 17 mmol/L (10-20); BUN (Urea Nitrogen) 8 mg/dL (8.4-25.7); Calc. Creatinine Clearance 0 mL/min (70-130); Calcium 8.4 mg/dL (7.8-10.44); Carbon Dioxide 20 mmol/L (23-31); Chloride 105 mmol/L (98-107); Glucose 79 mg/dL (83-110); Potassium 4.1 mmol/L (3.5-5.1); Sodium 138 mmol/L (136-145)
[2020-08-13 05:35] LABS: #Eosinphils 0.1 thou/uL (0.0-0.7); #Lymphocytes 2.8 thou/uL (1.20-3.40); #Monocytes 1.2 thou/uL (0.11-0.59); #Neutrophils 8.2 thou/uL (1.40-6.50); %Basophils 0.2 % (0.0-1.0); %Eosinophils 0.9 % (0.0-10.0); %Lymphocytes 22.7 % (21.0-51.0); %Monocytes 9.4 % (0.0-10.0); %Neutrophils 66.8 % (42.0-75.0); Hemoglobin 14.1 g/dL (14.0-18.0); Mean Corpuscular HGB CONC 30.1 g/dL (32.0-36.0); Mean Corpuscular Volume 89.9 fL (78.0-98.0); Mean Platelet Volume 9.3 fL (7.4-10.4); Platelet Count 139 thou/uL (130-400); RBC Distribution Width 12.6 % (11.5-14.5); Red Blood Cell (RBC) Count 5.22 mill/uL (4.70-6.10); White Blood Cell (WBC) Count 12.3 thou/uL (4.8-10.8)
--- NOTE | 2020-08-13 09:10 | CT ---
PRELIMINARY REPORT/[facility]/EMERGENCY AFTER HOURS PROCEDURE: EXAMINATION Unenhanced CT brain and CTA intracranial circulation. HISTORY F/U ICH TECHNIQUE Axial CTA images of the head with intravenous contrast. Three-dimensional MIP/volume rendered reforma tions were performed. Axial computed tomography images of the head/brain performed with/without intravenous contrast. CONTRAST With; 70ML ISOVUE [address]\SR - CTA ANGIO HEAD W WO CON - 08/12/2020 06:46 PM [facility] FINDINGS: CT HEAD: BRAIN: Left cerebellar hemisphere intracranial bleed measuring 3.5 x 2.1 cm previously 3.6 x 2.1 cm. Cerebra l atrophy. Stable periventricular hypodensities due to small vessel ischemic disease. VENTRICLES: No hydrocephalus. ORBITS: The orbits are unremarkable. SINUSES AND MASTOIDS: The paranasal sinuses and mastoid air cells are clear CTA HEAD: INTERNAL CAROTID ARTERIES The intracranial ICAs are patent with no significant stenosis. No occlusion. No aneurysm. ANTERIOR CEREBRAL ARTERIES No significant stenosis. No occlusion. No aneurysm. MIDDLE CEREBRAL ARTERIES No significant stenosis. No occlusion. No aneurysm. POSTERIOR CEREBRAL ARTERIES No significant stenosis. No occlusion. No aneurysm. BASILAR ARTERY No significant stenosis. No occlusion. No aneurysm. VERTEBRAL ARTERIES No significant stenosis. No occlusion. No aneurysm. OTHER: SOFT TISSUES: No acute finding. No masses or lymphadenopathy. BONES: No acute osseous abnormality. MISCELLANEOUS There is poor dentition IMPRESSION: CTA within normal limits. Stable left cerebellar hemisphere hemorrhage. ELECTRONICALLY SIGNED BY: Sue Villalba MD Aug 13, 2020 6:37:00 AM [facility] This report is intended for review by the ordering physician only, in accordance of law. If you recei ve this report in error, please call [facility] at [phone]. FINAL REPORT CTA HEAD WITH AND WITHOUT CONTRAST: Axial tomograms were obtained through the head without contrast. This was followed by CTA head with multiplanar reconstruction and 3D post processing following cerebral angio protocol. CT HEAD WITHOUT CONTRAST: Left cerebellar intraparenchymal hematoma is again noted. CTA HEAD: Intracranial internal carotid arteries, anterior cerebral arteries, and middle cerebral arteries unre markable. Visualized vertebral arteries are patent. The basilar artery is atretic and I cannot exclude focal stenosis or occlusion in the mid basilar art tatiana. The posterior cerebral arteries appear patent. IMPRESSION: Atretic tiny basilar artery with possible stenosis or occlusion in the mid basilar artery. This was not described on the preliminary report. I am in agreement with the preliminary report other than the basilar artery findings. Findings related to the emergency department. CODE CR POS: AGW
[2020-08-13 10:21] LABS: Squamous Epithelial None Seen HPF (0-3)
[2020-08-13 10:23] LABS: Bilirubin Negative (Negative); Blood, Urine Moderate (Negative); Glucose, Urine (Dipstick) Negative (Negative); Ketone, Urine Negative (Negative); Leukocyte Small (Negative); Nitrite Positive (Negative); Protein, Urine (Dipstick) Negative (Neg-Trace); Urobilinogen 0.2 mg/dL (Less than 2)
[2020-08-13 10:44] LABS: Clarity Clear (Clear)
[2020-08-13 10:46] LABS: Specific Gravity, Urine 1.039 (1.002-1.036)
[2020-08-13 10:52] LABS: Bacteria/HPF 4+ HPF (None Seen)
[2020-08-13] MEDS ORDERED: Iopamidol-370 76% 500 ML 1 ML ONE (12:08)
[2020-08-13] MEDS: Sodium Chloride 0.9% 1,000 ML IV SCH (12:39)
--- NOTE | 2020-08-13 13:14 | PDOC.HOSPP ---
- Subjective Encounter Date: 08/13/20 Encounter Time: 13:13 Subjective: Mr. Ackerman was seen today in follow-up of ICH and elevated blood pressure. He says he feels fine. He denies headache, or dizziness. He denies any new weakness in his extremities. - Objective Vital Signs & Weight: Vital Signs (12 hours) Temp Pulse Resp BP Pulse Ox 08/13/20 09:00 98.5 F 47 L 19 166/86 H 96 Weight Weight 190 lb 14.725 oz Result Diagrams: 08/13/20 04:44 08/13/20 04:44 Additional Labs: Accuchecks 08/12/20 18:34 POC Glucose 107 H Hospitalist ROS - Medication Medications: Active Medications Generic Name Dose Route Start Last Admin Trade Name Freq PRN Reason Stop Dose Admin Sodium Chloride 1,000 mls @ 70 mls/hr 08/12/20 20:45 08/13/20 12:39 Normal Saline 0.9% IV 1,000 mls .[id number] TAMIA Administration Nimodipine 60 mg 08/12/20 20:45 08/13/20 10:27 Nimodipine 30 Mg Cap PO 60 mg Q4H TAMIA Administration - Exam Eye: PERRL, anicteric sclera Heart: RRR, no murmur, no gallops, no rubs, normal peripheral pulses Respiratory: CTAB, no wheezes, no rales, no ronchi, normal chest expansion, no tachypnea Gastrointestinal: soft, non-tender, non-distended, normal bowel sounds, no palpable masses, no hepatomegaly Extremities: no cyanosis, no edema Neurological: cranial nerve grossly intact Neurological - other findings: + mild weakness in the left lower extremity, but still 5/5 Musculoskeletal: no muscle wasting Psychiatric: normal affect, normal behavior, A&O x 3 Hosp A/P (1) ICH (intracerebral hemorrhage) Code(s): I61.9 - NONTRAUMATIC INTRACEREBRAL HEMORRHAGE, UNSPECIFIED Status: Acute (2) Hypertension Code(s): I10 - ESSENTIAL (PRIMARY) HYPERTENSION Status: Chronic Qualifiers: Hypertension type: essential hypertension Qualified Code(s): I10 - Essential (primary) hypertension - Plan * ICH- possibly due to hypertension. He does not have any new neurological deficits. Neurosurgery evaluation noted. He will likely not need surgical intervention * Will hold diuretics for now, and monitor his electrolytes carefully * HTN- will add Lisinopril, and Hydralazine as needed, and begin to determine an out patient antihypertensive regimen. I have counseled him extensively on the need for compliance with blood pressure medications. * PT/OT
[2020-08-13] MEDS ORDERED: Lisinopril 5 MG TAB PO SCH (13:15)
[2020-08-13] MEDS ORDERED: Lisinopril 10 MG TAB ONE (14:04)
[2020-08-13 16:45] VITALS: BMI 26.8
--- NOTE | 2020-08-14 00:12 | PRG ---
DATE OF SERVICE: 08/13/2020 Mr. Ackerman was admitted yesterday evening for acute onset of altered mental status and was found to have an intracerebral hemorrhage typically to the left cerebellar hemisphere with no mass effect on the 4th ventricle. No surrounding vasogenic edema. There is some suggestion of possible either vascular malformation or cavernoma to the medial aspect of the hemorrhage. Repeat CT scan was performed this morning at 0500, which reveals stable hemorrhage from reports from hospitalist staff and nursing staff. Examinations remained stable. No intervention at this time from Neurosurgery. Job ID: [id number]
[2020-08-14] MEDS: Sodium Chloride 0.9% 1,000 ML IV SCH ×2 (03:24→16:53)
[2020-08-14] MEDS: niMODipine 30 MG CAP PO SCH (04:06)
[2020-08-14] MEDS: hydrALAZINE 25 MG TAB PO PRN ×3 (04:18→18:13)
[2020-08-14 07:07] LABS: #Eosinphils 0.1 thou/uL (0.0-0.7); #Lymphocytes 1.4 thou/uL (1.20-3.40); #Monocytes 0.8 thou/uL (0.11-0.59); #Neutrophils 6.6 thou/uL (1.40-6.50); %Eosinophils 0.8 % (0.0-10.0); %Lymphocytes 15.7 % (21.0-51.0); %Monocytes 8.5 % (0.0-10.0); Hemoglobin 15.5 g/dL (14.0-18.0); Mean Corpuscular Hemoglobin 28.9 pg (27.0-31.0); Mean Corpuscular Volume 90.3 fL (78.0-98.0); Mean Platelet Volume 8.4 fL (7.4-10.4); Platelet Count 196 thou/uL (130-400); RBC Distribution Width 12.6 % (11.5-14.5); Red Blood Cell (RBC) Count 5.36 mill/uL (4.70-6.10); White Blood Cell (WBC) Count 8.8 thou/uL (4.8-10.8)
[2020-08-14 07:21] LABS: Anion Gap 15 mmol/L (10-20); BUN (Urea Nitrogen) 9 mg/dL (8.4-25.7); Calc. Creatinine Clearance 88 mL/min (70-130); Calcium 8.7 mg/dL (7.8-10.44); Carbon Dioxide 22 mmol/L (23-31); Chloride 106 mmol/L (98-107); Glucose 91 mg/dL (83-110); Potassium 3.9 mmol/L (3.5-5.1); Sodium 139 mmol/L (136-145)
--- NOTE | 2020-08-14 07:43 | PRG ---
DATE OF SERVICE: 08/14/2020 I personally interviewed and examined the patient this morning. I agree with previous notes of Vick Lowry and Rashard Swanson PA-C Briefly, Ta Ackerman is a 70-year-old gentleman brought with hypertensive episode and a left superior cerebellar hemorrhage two days ago. He has been stable since his admission and followup CT scans do not show any enlargement of the hemorrhage nor is there any compression of the fourth ventricle and there is no hydrocephalus. Overnight, I do not see any fevers recorded. Blood pressures have been in the 140s to 160s. On examination, Mr. Ackerman has some dysmetria on the left. He does not have any cranial neuropathies. I did not find any new motor or sensory deficits. There are no new labs to report this morning. CT angiography done twice does not reveal aneurysm or obvious AVM. Interestingly, there are PCOMs on both sides, which fill the top of the basilar. The central portion of the basilar artery is quite narrow and falls out on the CT angiogram. The PICA vessels and the AICA vessels fill from the vertebrals and the inferior basilar. I reassured Mr. Ackerman that he does not need surgical intervention for this hemorrhage. He will need rehabilitation to make him safe for activities of daily living. He will need aggressive blood pressure control. I am going to follow up in four weeks' time with a noncontrast CT scan. Once all the blood products are gone on the CT, we will get an MRI scan to see if there is an underlying cavernoma. There is a hint of this on prior imaging from years ago. He does not need neurosurgical intervention. Job ID: [id number] [facility]
[2020-08-14] MEDS ORDERED: Lisinopril 5 MG TAB PO SCH (09:00)
[2020-08-14] MEDS ORDERED: FLU VACC QS2020-21(65YR UP)/PF 240 MCG/0.7 ML SYRINGE IM ONE (09:00)
[2020-08-14] MEDS ORDERED: Amlodipine 5 MG TAB PO SCH ×2 (09:00→14:45)
--- NOTE | 2020-08-14 09:48 | PDOC.HOSPP ---
- Subjective Encounter Date: 08/14/20 Encounter Time: 09:47 Subjective: Mr. Ackerman was seen today in follow-up of ICH and hypertension. He does not have any complaints. He denies any weakness in his extremities. - Objective Vital Signs & Weight: Vital Signs (12 hours) Temp Pulse Resp BP BP Pulse Ox 08/14/20 07:40 97.5 F L 57 L 20 151/91 H 97 08/14/20 06:30 132/86 08/14/20 04:18 55 L 161/96 H 08/14/20 03:57 98.5 F 55 L 20 161/96 H 94 L 08/14/20 00:00 98.8 F 61 18 160/90 H 95 Weight Weight 186 lb 11.2 oz I&O: 08/13/20 08/14/20 08/15/20 06:59 06:59 06:59 Intake Total 529 960 Output Total 600 950 Balance -71 10 Result Diagrams: 08/14/20 06:44 08/14/20 06:44 Hospitalist ROS - Medication Medications: Active Medications Generic Name Dose Route Start Last Admin Trade Name Freq PRN Reason Stop Dose Admin Amlodipine Besylate 5 mg 08/14/20 09:00 08/14/20 08:25 Amlodipine 5 Mg Tab PO 5 mg DAILY TAMIA Administration Hydralazine HCl 25 mg 08/13/20 13:10 08/14/20 04:18 Hydralazine 25 Mg Tab PO 25 mg TIDPRN PRN Administration SBP GREATER THAN 160 Sodium Chloride 1,000 mls @ 70 mls/hr 08/12/20 20:45 08/14/20 03:24 Normal Saline 0.9% IV 1,000 mls .[id number] TAMIA Administration Lisinopril 5 mg 08/14/20 09:00 08/14/20 08:25 Lisinopril 5 Mg Tab PO 5 mg DAILY TAMIA Administration - Exam Eye: PERRL, anicteric sclera Heart: RRR, no murmur, no gallops, no rubs, normal peripheral pulses Respiratory: CTAB, no wheezes, no rales, no ronchi, normal chest expansion, no tachypnea Gastrointestinal: soft, non-tender, non-distended, normal bowel sounds, no palpable masses, no hepatomegaly Extremities: no cyanosis, no edema Neurological: no weakness Musculoskeletal: normal strength, no muscle wasting Psychiatric: normal affect, A&O x 3 Hosp A/P (1) ICH (intracerebral hemorrhage) Code(s): I61.9 - NONTRAUMATIC INTRACEREBRAL HEMORRHAGE, UNSPECIFIED Status: Acute (2) Hypertension Code(s): I10 - ESSENTIAL (PRIMARY) HYPERTENSION Status: Chronic Qualifiers: Hypertension type: essential hypertension Qualified Code(s): I10 - Essential (primary) hypertension - Plan * ICH- possibly due to hypertension. No neurological deficits * HTN- blood pressure is not optimally controlled- will add Amlodipine, and discontinue Nimodipine, and titrate the medications as needed * PT/OT * Home when ok by Neurosurgery team
[2020-08-14] MEDS ORDERED: Enalaprilat Dihydrate 1.25 MG/ML VIAL SLOW IVP PRN (14:28)
[2020-08-14] MEDS ORDERED: hydrALAZINE 20 MG/ML VIAL SLOW IVP PRN (14:29)
[2020-08-14] MEDS: Acetaminophen 325 MG TAB PO PRN (22:08)
[2020-08-14] MEDS: Lisinopril 5 MG TAB PO SCH (22:08)
[2020-08-15] MEDS: Sodium Chloride 0.9% 1,000 ML IV SCH (06:10)
--- NOTE | 2020-08-15 08:04 | PRG ---
DATE OF SERVICE: 08/15/2020 Mr. Ackerman is still in stroke unit this morning. He is admitted with a left superior cerebellar hemorrhage without obstruction of the 4th ventricle. He has been convalescing and he has not had neurological deterioration. No events were reported overnight. Mr. Ackerman is frustrated that he is left in bed 24 hours a day and his back is starting to hurt. He feels like he needs to move around more. Overnight, the maximum temperature was 100.9 degrees Fahrenheit. Blood pressures have been in the 120s to 160s. On examination, there is some dysmetria on the left. I do not find any new neurological deficits. Mr. Ackerman has been resting for long enough that ultrasound of lower extremities seems reasonable. Aggressive physical therapy, occupational therapy, and sitting in a bedside chair would be helpful to him. More helpful would be placed when in inpatient rehabilitation and that can happen any time. There is no need for neurosurgical intervention. Job ID: [id number] [facility]
[2020-08-15] MEDS ORDERED: Amlodipine 10 MG TAB PO SCH (09:00)
[2020-08-15] MEDS: hydrALAZINE 25 MG TAB PO SCH ×3 (09:26→20:32)
[2020-08-15] MEDS: Lisinopril 5 MG TAB PO SCH (09:27)
--- NOTE | 2020-08-15 10:47 | CT ---
EXAM: CT angiogram head and neck with IV contrast and 3-D reconstructions PROVIDED CLINICAL HISTORY: Level 1 stroke. Left-sided weakness and facial droop. Left cerebellar hemorrhage. COMPARISON: Noncontrast CT head on this date. FINDINGS: There is a normal arrangement of the great vessels at the aortic arch which do appear patent. Left schultz bclavian artery is mostly obscured due to dense contrast in the left subclavian vein. Portion of the proximal left common carotid artery are also obscured due to adjacent artifact from venous contra st. The innominate artery and right subclavian artery as well as right common carotid artery and remainder of the left common carotid artery are widely patent. There is mild atherosclerotic plaque involving the distal common carotid arteries bilaterally. There is calcified atherosclerotic plaque at the carotid artery bifurcations. The left internal carotid artery is patent. There is only minimal narrowing of the proximal right internal carotid artery. The vertebral arteries are small in caliber bilaterally but codominant and patent. The basilar artery is miniscule in size, and the vertebral arteries predominantly terminate in PICA. There are type origins involving the bilateral posterior cerebral arteries which are patent. The bilateral middle cerebral and anterior cerebral arteries are patent. No focal intracranial aneurysm is seen. Mild groundglass densities are seen within the dependent portion of the lungs bilaterally likely rela sera to volume loss. As noted on noncontrast CT of the head, there is a parenchymal hematoma in the left cerebellar hemisp here with surrounding edema and mild mass effect on the adjacent fourth ventricle. The visualized dural venous sinuses appear patent. Multilevel degenerative changes are seen in the spine. Periapical lucency is seen involving the left maxillary molar suggesting periapical abscess. Dental c natalio are present in the right maxillary molars. IMPRESSION: 1. Mild atherosclerotic plaque in the carotid artery bifurcations bilaterally, but the bilateral inte rnal carotid arteries are patent. 2. No focal stenosis or branch occlusion is seen involving the [place] of [place]. 3. Vertebral arteries are very small in caliber with very miniscule basilar artery. Prominent patent type origins of each posterior cerebral artery are seen. 4. No intracranial aneurysm is seen. 5. Left cerebellar parenchymal hemorrhage with adjacent edema. 6. Biapical lucencies suggesting peritoneal abscess involving left maxillary molar. Dental caries are seen in a right maxillary molar. 7. Above findings discussed Dr. Mesa in the emergency department on 08/12/2020 at 1928 hours. Transcribed Date/Time: 08/15/2020 10:47 AM
--- NOTE | 2020-08-15 11:05 | ULT ---
EXAM: Bilateral lower extremity venous Doppler HISTORY: Immobile/nonambulatory for 4 days. FINDINGS: Grayscale, color-flow, Doppler evaluation, spectral analysis of the bilateral lower extremity venous structures is performed with 2-D imaging. The bilateral common femoral, superficial femoral, popliteal, posterior tibial, proximal greater saphenous and profunda femoral veins are imaged. There is normal luminal compressibility, flow, and augmentation in the visualized deep venous structu res of the bilateral lower extremities. There is an anechoic collection seen within the popliteal fossa which measures 4.5 cm x 3 cm x 2 cm d emonstrating thickened lorenzo and bandlike area increased echogenicity centrally which may represent septation or debris. No flow is seen on color flow evaluation. Findings are likely related to a mildl y complicated Daniels's cyst IMPRESSION: 1. No evidence of a deep vein thrombosis in the visualized deep venous structures bilateral lower ext remities. 2. Probable mildly complex Daniels's cyst right popliteal fossa.
[2020-08-15 12:35] LABS: Anion Gap 18 mmol/L (10-20); BUN (Urea Nitrogen) 16 mg/dL (8.4-25.7); Calc. Creatinine Clearance 77 mL/min (70-130); Calcium 8.8 mg/dL (7.8-10.44); Carbon Dioxide 22 mmol/L (23-31); Chloride 104 mmol/L (98-107); Glucose 82 mg/dL (83-110); Potassium 3.8 mmol/L (3.5-5.1); Sodium 140 mmol/L (136-145)
[2020-08-15] MEDS: Acetaminophen 325 MG TAB PO PRN (13:59)
[2020-08-15 14:06] LABS: #Basophils 0.1 thou/uL (0.0-0.2); #Lymphocytes 2.5 thou/uL (1.20-3.40); #Monocytes 1.8 thou/uL (0.11-0.59); #Neutrophils 8.7 thou/uL (1.40-6.50); %Basophils 0.5 % (0.0-1.0); %Eosinophils 0.3 % (0.0-10.0); %Lymphocytes 18.9 % (21.0-51.0); %Monocytes 13.7 % (0.0-10.0); %Neutrophils 66.5 % (42.0-75.0); Hemoglobin 16.1 g/dL (14.0-18.0); Mean Corpuscular HGB CONC 31.7 g/dL (32.0-36.0); Mean Corpuscular Hemoglobin 28.5 pg (27.0-31.0); Mean Corpuscular Volume 90.1 fL (78.0-98.0); Mean Platelet Volume 8.3 fL (7.4-10.4); Platelet Count 192 thou/uL (130-400); RBC Distribution Width 12.7 % (11.5-14.5); Red Blood Cell (RBC) Count 5.66 mill/uL (4.70-6.10); White Blood Cell (WBC) Count 13.1 thou/uL (4.8-10.8)
--- NOTE | 2020-08-15 14:29 | RAD ---
EXAM: Portable chest PROVIDED CLINICAL HISTORY: Fever COMPARISON: 08/12/2020 FINDINGS: The lungs are hypoinflated. Cardiac and mediastinal silhouette is within normal limits. Subsegmental atelectasis versus consolidation at the right lung base. No pleural fluid or pneumothorax apparent. IMPRESSION: Hypoinflated exam with subsegmental atelectasis versus pneumonia right lung base.
[2020-08-15 14:58] LABS: Bacteria/HPF 4+ HPF (None Seen); Bilirubin Negative (Negative); Blood, Urine 3+ (Negative); Clarity Turbid (Clear); Glucose, Urine (Dipstick) Normal (Negative); Ketone, Urine Negative (Negative); Leukocyte 500 Leu/uL (Negative); Nitrite 2+ (Negative); Protein, Urine (Dipstick) 20 mg/dL (Neg-Trace); RBC/HPF Greater than 50 HPF (0-3); Specific Gravity, Urine 1.018 (1.002-1.036); Squamous Epithelial None Seen HPF (0-3); Urobilinogen Normal mg/dL (Less than 2); WBC/HPF Greater than 50 HPF (0-3); pH, Urine 6.5 (5.0-9.0)
[2020-08-15 14:59] LABS: Urine Culture Reflex Yes Yes
[2020-08-15] MEDS ORDERED: cefTRIAXone\\ROCEPHIN 2 GM in Sodium Chloride 0.9% 100 ML IVPB SCH (16:00)
[2020-08-15] MEDS ORDERED: Doxycycline 100 MG CAP PO SCH (16:00)
--- NOTE | 2020-08-15 18:05 | PDOC.HOSPP ---
- Subjective Encounter Date: 08/15/20 Encounter Time: 13:00 Subjective: Patient seen and examined for intracranial bleed. RN reported fever along with elevated blood pressure. Denies any headache, nausea or vomiting. No chest pain shortness of breath or palpitations reported. - Objective Vital Signs & Weight: Vital Signs (12 hours) Temp Pulse Resp BP BP Pulse Ox 08/15/20 16:50 98.9 F 87 18 136/91 H 92 L 08/15/20 13:59 101.0 F H 80 161/91 H 08/15/20 12:59 101.0 F H 80 20 161/91 H 94 L 08/15/20 09:27 155/90 H 08/15/20 09:26 155/90 H 94 L 08/15/20 07:38 99.7 F H 68 15 155/90 H 94 L Weight Weight 184 lb 6.4 oz I&O: 08/14/20 08/15/20 08/16/20 06:59 06:59 06:59 Intake Total 529 3509 2310 Output Total 600 2300 450 Balance -71 1209 1860 Result Diagrams: 08/15/20 13:53 08/15/20 11:52 Additional Labs: Abnormal Lab Results - Last 48 hrs 08/14/20 06:44: Carbon Dioxide 22 L 08/14/20 06:44: Lymphocytes % 15.7 L, Neutrophils # 6.6 H, Monocytes # 0.8 H 08/15/20 11:52: Carbon Dioxide 22 L 08/15/20 13:53: WBC 13.1 H, MCHC 31.7 L, Lymphocytes % 18.9 L, Monocytes % 13.7 H, Neutrophils # 8.7 H, Monocytes # 1.8 H 08/15/20 14:18: Urine Clarity Turbid A, Urine Blood 3+ A, Urine Nitrite 2+ A, Ur Leukocyte Esterase 500 A, Urine RBC Greater than 50 A, Urine WBC Greater than 50 A, Amorphous Crystals Rare A, Urine Bacteria 4+ A, Urine Culture Reflexed Yes A Radiology Reviewed by me: Yes (Chest x-ray showed suspected right lower lobe pneumonia) EKG Reviewed by me: Yes (Sinus rhythm on telemetry) Hospitalist ROS - Review of Systems Cardiovascular: denies: chest pain, palpitations, orthopnea, paroxysmal noc. dyspnea, edema, light headedness, other Gastrointestinal: denies: nausea, vomiting, abdominal pain, diarrhea, constipation, melena, hematochezia, other - Medication Medications: Active Medications Generic Name Dose Route Start Last Admin Trade Name Freq PRN Reason Stop Dose Admin Acetaminophen 650 mg 08/14/20 21:07 08/15/20 13:59 Acetaminophen 325 Mg Tab PO 650 mg Q6H PRN Administration .FEVER Amlodipine Besylate 10 mg 08/15/20 09:00 08/15/20 09:26 Amlodipine 10 Mg Tab PO 10 mg DAILY TAMIA Administration Enalaprilat 1.25 mg 08/14/20 14:28 08/14/20 16:51 Enalaprilat Dihydrate 1.25 Mg/Ml Vial SLOW IVP 1.25 mg Q6H PRN Administration SBP > 150 Hydralazine HCl 25 mg 08/13/20 13:10 08/14/20 18:13 Hydralazine 25 Mg Tab PO 25 mg TIDPRN PRN Administration SBP GREATER THAN 160 Hydralazine HCl 25 mg 08/15/20 09:00 08/15/20 13:59 Hydralazine 25 Mg Tab PO 25 mg TID TAMIA Administration Ceftriaxone Sodium 2 gm/ 100 mls @ 200 mls/hr 08/15/20 16:00 08/15/20 16:45 Sodium Chloride IVPB 100 mls Q24HR TAMIA Administration Lisinopril 5 mg 08/14/20 21:00 08/15/20 09:27 Lisinopril 5 Mg Tab PO 5 mg BID TAMIA Administration - Exam General Appearance: NAD Neck: supple, symmetric, no JVD Heart: RRR, no gallops, normal peripheral pulses Respiratory: no wheezes, no tachypnea, rales (At right base), rhonchi Gastrointestinal: soft, non-tender, normal bowel sounds, no guarding, no rigidity Extremities: no cyanosis, no clubbing, no edema Extremities - other findings: No calf tenderness Neurological: no new deficit Musculoskeletal: generalized weakness Psychiatric: normal affect, A&O x 3 Hosp A/P - Plan DVT proph w/SCDs (No Lovenox due to intracranial bleed) Patient is a 70-year-old male with hypertension presented to the emergency room with altered mentation on 08/12. His blood pressure by EMS was 202/112. CT head without contrast showed parenchymal hematoma and adjacent edema in the left cerebellar hemisphere. CT angiogram of the head and neck was negative for an eurysm or hemodynamically significant stenosis. Please refer to the history and physical for further details. The patient was monitored in the intensive care unit. He was placed on nicardipine drip. He was evaluated by neurosurgery. There was no neurosurgical intervention needed. Later on he was transferred to stroke floor. Patient was found to have intermittent fever since 08/14. His temperature on 08/15 was 101. Urinalysis showed greater than 50 WBCs and RBCs with 4+ bacteria. Chest x-ray showed possible right lung base infiltrate. He has been started on ceftriaxone and doxycycline. 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 Patient also has leukocytosis with WBC 13.1.? Sepsis Hypertension with hypertensive emergency on admission Plan: Continue amlodipine 10 mg daily. Discontinue IV fluids. Empiric antibiotics due to abnormal chest x-ray and UA. Increase lisinopril to 10 mg twice daily. Add hydralazine due to uncontrolled blood pressure. Went venous Doppler negative for DVT. Continue physical therapy. DC to nursing home facility once medically stable continue other medications as above
[2020-08-15] MEDS: Senokot S 8.6-50 MG TAB PO SCH (20:31)
[2020-08-15] MEDS: Doxycycline 100 MG CAP PO SCH (20:31)
[2020-08-15] MEDS: Lisinopril 10 MG TAB PO SCH (20:32)
[2020-08-16 05:33] LABS: ALT (SGPT) 8 U/L (8-55); AST (SGOT) 11 U/L (5-34); Albumin 3.6 g/dL (3.4-4.8); Alkaline Phosphatase 67 U/L (40-110); Anion Gap 16 mmol/L (10-20); BUN (Urea Nitrogen) 15 mg/dL (8.4-25.7); Bilirubin, Total 1.2 mg/dL (0.2-1.2); CRP (Inflammatory) 21.12 mg/dL (= or < 0.5); Calc. Creatinine Clearance 86 mL/min (70-130); Calcium 8.7 mg/dL (7.8-10.44); Carbon Dioxide 21 mmol/L (23-31); Chloride 103 mmol/L (98-107); Globulin 3.9 g/dL (2.4-3.5); Glucose 97 mg/dL (83-110); Potassium 3.8 mmol/L (3.5-5.1); Protein, Total 7.5 g/dL (5.8-8.1); Sodium 136 mmol/L (136-145)
[2020-08-16] MEDS: Acetaminophen 325 MG TAB PO PRN (05:39)
[2020-08-16 06:13] LABS: Hemoglobin 16.5 g/dL (14.0-18.0); Mean Corpuscular HGB CONC 31.1 g/dL (32.0-36.0); Mean Corpuscular Hemoglobin 27.9 pg (27.0-31.0); Mean Corpuscular Volume 89.9 fL (78.0-98.0); Mean Platelet Volume 8.6 fL (7.4-10.4); Platelet Count 172 thou/uL (130-400); RBC Distribution Width 12.6 % (11.5-14.5); Red Blood Cell (RBC) Count 5.91 mill/uL (4.70-6.10)
[2020-08-16 06:15] LABS: Band 2 % (5-11); Lymphocytes 13 % (21-51); MDiff Complete? YES; Monocytes 17 % (0-10); Neutrophil 68 % (42-75)
[2020-08-16] MEDS: Senokot S 8.6-50 MG TAB PO SCH ×2 (08:56→21:46)
[2020-08-16] MEDS: Polyethylene Glycol 3350 17 GM Packet PO SCH (08:56)
[2020-08-16] MEDS: Doxycycline 100 MG CAP PO SCH ×2 (08:56→21:46)
[2020-08-16] MEDS: Lisinopril 10 MG TAB PO SCH ×3 (08:57→21:46)
[2020-08-16] MEDS: Amlodipine 5 MG TAB PO SCH ×2 (10:39→21:47)
[2020-08-16] MEDS ORDERED: cefTRIAXone\\ROCEPHIN 2 GM in Sodium Chloride 0.9% 100 ML IVPB SCH (12:45)
--- NOTE | 2020-08-16 18:59 | PDOC.HOSPP ---
- Subjective Encounter Date: 08/16/20 Encounter Time: 11:30 Subjective: Patient seen and examined for intracranial bleed. No new focal deficit. Mild dry cough. Denies any fever or chills. No headache or blurring of vision - Objective Vital Signs & Weight: Vital Signs (12 hours) Temp Pulse Pulse Pulse Resp BP BP 08/16/20 15:27 99.0 F 70 16 08/16/20 12:00 98.0 F 64 16 08/16/20 10:40 121/85 08/16/20 10:39 68 121/85 08/16/20 08:57 86 77 130/91 H 08/16/20 08:56 08/16/20 08:00 98.0 F 81 16 BP BP BP BP Pulse Ox Pulse Ox Pulse Ox 08/16/20 15:27 111/83 97 08/16/20 12:00 112/78 97 08/16/20 10:40 08/16/20 10:39 08/16/20 08:57 111/81 98 96 08/16/20 08:56 98 08/16/20 08:00 97/75 97 Weight Weight 184 lb 6.4 oz I&O: 08/15/20 08/16/20 08/17/20 06:59 06:59 06:59 Intake Total 3509 2440 Output Total 2300 1200 Balance 1209 1240 Result Diagrams: 08/16/20 04:31 08/16/20 04:31 Additional Labs: Abnormal Lab Results - Last 48 hrs 08/15/20 11:52: Carbon Dioxide 22 L 08/15/20 13:53: WBC 13.1 H, MCHC 31.7 L, Lymphocytes % 18.9 L, Monocytes % 13.7 H, Neutrophils # 8.7 H, Monocytes # 1.8 H 08/15/20 14:18: Urine Clarity Turbid A, Urine Blood 3+ A, Urine Nitrite 2+ A, Ur Leukocyte Esterase 500 A, Urine RBC Greater than 50 A, Urine WBC Greater than 50 A, Amorphous Crystals Rare A, Urine Bacteria 4+ A, Urine Culture Reflexed Yes A 08/16/20 04:31: Hct 53.1 H, MCHC 31.1 L, Band Neuts % (Manual) 2 L, Lymphocytes % (Manual) 13 L, Monocytes % (Manual) 17 H 08/16/20 04:31: Carbon Dioxide 21 L, C-Reactive Protein 21.12 H, Globulin 3.9 H, Albumin/Globulin Ratio 0.9 L Microbiology - Entire Visit 08/15/20 14:59 Urine barrientos catheter Urine Culture - Preliminary Gram Negative [place] 08/15/20 14:35 Venous blood - Right Arm Blood Culture - Preliminary Specimen has been received and culture in progress. No Growth to date. 08/15/20 14:35 Venous blood - Right Hand Blood Culture - Preliminary Specimen has been received and culture in progress. No Growth to date. EKG Reviewed by me: Yes (Sinus rhythm on telemetry) Hospitalist ROS - Review of Systems Cardiovascular: denies: chest pain, palpitations, orthopnea, paroxysmal noc. dyspnea, edema, light headedness, other Gastrointestinal: denies: nausea, vomiting, abdominal pain, diarrhea, constipation, melena, hematochezia, other - Medication Medications: Active Medications Generic Name Dose Route Start Last Admin Trade Name Freq PRN Reason Stop Dose Admin Acetaminophen 650 mg 08/14/20 21:07 08/16/20 05:39 Acetaminophen 325 Mg Tab PO 650 mg Q6H PRN Administration .FEVER Amlodipine Besylate 5 mg 08/16/20 09:00 08/16/20 10:39 Amlodipine 5 Mg Tab PO 5 mg BID TAMIA Administration Doxycycline Hyclate 100 mg 08/15/20 21:00 08/16/20 08:56 Doxycycline 100 Mg Cap PO 100 mg BID TAMIA Administration Enalaprilat 1.25 mg 08/14/20 14:28 08/14/20 16:51 Enalaprilat Dihydrate 1.25 Mg/Ml Vial SLOW IVP 1.25 mg Q6H PRN Administration SBP > 150 Hydralazine HCl 25 mg 08/13/20 13:10 08/14/20 18:13 Hydralazine 25 Mg Tab PO 25 mg TIDPRN PRN Administration SBP GREATER THAN 160 Hydralazine HCl 25 mg 08/15/20 09:00 08/15/20 20:32 Hydralazine 25 Mg Tab PO 25 mg TID TAMIA Administration Lisinopril 10 mg 08/15/20 21:00 08/16/20 10:40 Lisinopril 10 Mg Tab PO 10 mg BID TAMIA Administration Polyethylene Glycol 17 gm 08/16/20 09:00 08/16/20 08:56 Polyethylene Glycol 3350 17 Gm Packet PO 17 gm DAILY TAMIA Administration Senna/Docusate Sodium 2 tab 08/15/20 21:00 08/16/20 08:56 Senokot S 8.6-50 Mg Tab PO 2 tab BID TAMIA Administration Sodium Chloride 10 ml 08/12/20 20:53 08/16/20 09:00 Flush - Normal Saline 10 Ml Syringe IVF 10 ml PRN PRN Administration Saline Flush - Exam General Appearance: NAD Heart: RRR, no gallops Respiratory: no wheezes, no ronchi, rhonchi Gastrointestinal: soft, non-distended Extremities: no cyanosis Neurological: no new deficit Musculoskeletal: generalized weakness Psychiatric: normal affect, A&O x 3 Hosp A/P - Plan DVT proph w/SCDs Patient is a 70-year-old male with hypertension presented to the emergency room with altered mentation on 08/12. His blood pressure by EMS was 202/112. CT head without contrast showed parenchymal hematoma and adjacent edema in the left cere bellar hemisphere. CT angiogram of the head and neck was negative for aneurysm or hemodynamically significant stenosis. Please refer to the history and physical for further details. The patient was monitored in the intensive care unit. He was placed on nicardipine drip. He was evaluated by neurosurgery. There was no neurosurgical intervention needed. Later on he was transferred to stroke floor. Patient was found to have intermittent fever since 08/14. His temperature on 08/15 was 101. Urinalysis showed greater than 50 WBCs and RBCs with 4+ bacteria. Chest x-ray showed possible right lung base infiltrate. He has been started on ceftriaxone and doxycycline. Impression: Left superior cerebellar hemorrhage without obstruction of the fourth ventricle Encephalopathy due to above Sepsis due to right lower lobe pneumonia ? Gram-negative with UTI Hypertension with hypertensive emergency on admission Plan: Continue ceftriaxone with doxycycline. Await cultures. Continue amlodipine. Hold hydralazine due to blood pressure on the lower side. Continue lisinopril. Patient is stable for discharge to inpatient rehab pending bed. Discharge paperwork completed. Continue other medications as above. Follow-up with cultures as outpatient
[2020-08-17 05:24] LABS: #Eosinphils 0.2 thou/uL (0.0-0.7); #Lymphocytes 1.9 thou/uL (1.20-3.40); #Monocytes 1.2 thou/uL (0.11-0.59); #Neutrophils 4.6 thou/uL (1.40-6.50); %Basophils 0.5 % (0.0-1.0); %Lymphocytes 24.4 % (21.0-51.0); %Monocytes 14.5 % (0.0-10.0); %Neutrophils 57.6 % (42.0-75.0); Hemoglobin 14.2 g/dL (14.0-18.0); Mean Corpuscular HGB CONC 30.9 g/dL (32.0-36.0); Mean Corpuscular Hemoglobin 27.7 pg (27.0-31.0); Mean Corpuscular Volume 89.5 fL (78.0-98.0); Mean Platelet Volume 8.7 fL (7.4-10.4); Platelet Count 212 thou/uL (130-400); RBC Distribution Width 12.4 % (11.5-14.5); Red Blood Cell (RBC) Count 5.14 mill/uL (4.70-6.10); White Blood Cell (WBC) Count 7.9 thou/uL (4.8-10.8)
[2020-08-17 05:50] LABS: ALT (SGPT) 10 U/L (8-55); AST (SGOT) 15 U/L (5-34); Albumin 3.4 g/dL (3.4-4.8); Alkaline Phosphatase 61 U/L (40-110); Anion Gap 14 mmol/L (10-20); BUN (Urea Nitrogen) 19 mg/dL (8.4-25.7); Bilirubin, Total 0.7 mg/dL (0.2-1.2); Calc. Creatinine Clearance 79 mL/min (70-130); Calcium 8.8 mg/dL (7.8-10.44); Carbon Dioxide 24 mmol/L (23-31); Chloride 101 mmol/L (98-107); Glucose 97 mg/dL (83-110); Potassium 4.2 mmol/L (3.5-5.1); Protein, Total 7.4 g/dL (5.8-8.1); Sodium 135 mmol/L (136-145)
[2020-08-17] MEDS ORDERED: cefTRIAXone\\ROCEPHIN 2 GM in Sodium Chloride 0.9% 100 ML IVPB SCH (09:15)
[2020-08-17] MEDS: Amlodipine 5 MG TAB PO SCH (10:01)
[2020-08-17] MEDS: Polyethylene Glycol 3350 17 GM Packet PO SCH (10:01)
[2020-08-17] MEDS: Doxycycline 100 MG CAP PO SCH (10:02)
[2020-08-17] MEDS: Senokot S 8.6-50 MG TAB PO SCH (10:02)
[2020-08-17] MEDS: Lisinopril 10 MG TAB PO SCH (10:02)
--- NOTE | 2020-08-17 15:53 | PDOC.DS.DS ---
Provider - Provider Date of Admission: 08/12/20 19:43 Date of Discharge: 08/17/20 Admitting Provider: Aidan Deng MD Consultations: Other (Neurosurgery) Primary Care Physician: Clarke Conn DO Course - Hospital Course Hospital Course: Patient is a 70-year-old male with hypertension presented to the emergency room with altered mentation on 08/12. His blood pressure by EMS was 202/112. CT head without contrast showed parenchymal hematoma and adjacent edema in the left cerebellar hemisphere. CT angiogram of the head and neck was negative for aneurysm or hemodynamically significant stenosis. Please refer to the history and physical for further details. The patient was monitored in the intensive care unit. He was placed on kayla ardipine drip. He was evaluated by neurosurgery. There was no neurosurgical intervention needed. Later on he was transferred to stroke floor. Patient was found to have intermittent fever since 08/14. His temperature on 08/15 was 101. Urinalysis showed greater than 50 WBCs and RBCs with 4+ bacteria. Chest x-ray showed possible right lung base infiltrate. He was started on ceftriaxone and doxycycline. Antibiotics have been transitioned to oral. He appears stable for transfer to inpatient rehab. Mentation is stable at this time. Patient was advised to follow-up with neurosurgery as outpatient. 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 Gram-negative with UTI Hypertension with hypertensive emergency on admission - Labs Lab Results: 08/17/20 04:53 08/17/20 04:53 Abnormal Lab Results - Last 48 hrs 08/16/20 04:31: Hct 53.1 H, MCHC 31.1 L, Band Neuts % (Manual) 2 L, Lymphocytes % (Manual) 13 L, Monocytes % (Manual) 17 H 08/16/20 04:31: Carbon Dioxide 21 L, C-Reactive Protein 21.12 H, Globulin 3.9 H, Albumin/Globulin Ratio 0.9 L 08/17/20 04:53: MCHC 30.9 L, Monocytes % 14.5 H, Monocytes # 1.2 H 08/17/20 04:53: Sodium 135 L, Globulin 4.0 H, Albumin/Globulin Ratio 0.9 L Microbiology - Entire Visit 08/15/20 14:35 Venous blood - Right Arm Blood Culture - Preliminary NO GROWTH AT 48 HOURS 08/15/20 14:35 Venous blood - Right Hand Blood Culture - Preliminary NO GROWTH AT 48 HOURS 08/15/20 14:59 Urine barrientos catheter Urine Culture - Final Klebsiella pneumoniae ssp pneu - Physical Exam Vitals: Vital Signs (12 hours) Temp Pulse Resp BP BP BP Pulse Ox 08/17/20 12:10 98.2 F 80 20 148/105 H 97 08/17/20 10:02 148/93 H 08/17/20 10:01 59 L 148/93 H 08/17/20 08:00 97.7 F 59 L 16 148/93 H 97 08/17/20 04:00 98.6 F 57 L 16 126/86 93 L Weight Weight 185 lb Physical Exam: The patient was seen and examined on the day of discharge. Plan - Discharge Medications Prescriptions: cloNIDine [Catapres] 0.1 mg PO BID PRN #20 tab PRN Reason: Sbp Greater Than 160 Saccharomyces boulardii [Florastor] 250 mg PO DAILY #30 cap Lisinopril/Hydrochlorothiazide [Lisinopril-Hctz 20-25 mg Tab] 1 tablet PO DAILY #30 tablet Cefdinir [Omnicef] 300 mg PO BID #10 cap Home Medications: Medication Instructions Recorded Confirmed Type Acetaminophen [Tylenol Regular 650 mg PO Q6H PRN tab 08/15/20 Rx Strength] Lisinopril/Hydrochlorothiazide 1 tablet PO DAILY #30 tablet 08/15/20 Rx [Lisinopril-Hctz 20-25 mg Tab] Amlodipine [Norvasc] 5 mg PO BID tab 08/16/20 Rx Cefdinir [Omnicef] 300 mg PO BID #10 cap 08/16/20 Rx Doxycycline [Vibramycin] 100 mg PO BID cap 08/16/20 Rx Saccharomyces boulardii [Florastor] 250 mg PO DAILY #30 cap 08/16/20 Rx cloNIDine [Catapres] 0.1 mg PO BID PRN #20 tab 08/16/20 Rx hydrALAZINE [Apresoline] 25 mg PO TIDPRN PRN tab 08/16/20 Rx Allergies: No Known Allergies Allergy (Verified 08/13/20 08:55) - Discharge Instructions Discharge Instructions:: BMP after 3-4 days - PCP to arrange/follow Follow up on blood/urine cultures - Follow up Plan Referrals: Clarke Conn DO [Primary Care Provider] - 7 Days Jose Antonio Olson MD [Active] - 2-3 Weeks Disposition: REHABILITATION INPATIENT Quality - Care Measures CORE MEASURES:: N/A
[2020-08-17 16:24] VITALS: TEMP 98.1
[2020-08-17 17:11] VITALS: BP 144/98
--- NOTE | 2020-08-20 06:20 | PQF ---
CLINICAL DOCUMENTATION CLARIFICATION FORM: Dear : Connor Ascencio Date / Time: 08/20/20 06:19 Please exercise your independent, professional judgment in responding to the clarification form. Clinical indicators are provided on the bottom of this form for your review Please check appropriate box(es): [ ] Sepsis due to [ x ] PNA [ x ] Gram negative UTI [ ] Both PNA and gram negative UTI [ ] Other diagnosis, please specify [ ] Unable to determine In addition, please specify: Present on Admission (POA): [ x ] Yes [ ] No [ ] Unable to determine Physician Signature: Date/Time: For continuity of documentation, please document condition throughout progress notes and discharge summary. Thank You. To be completed by CDI/Coding staff for physician review: Present Clinical Indicators - Signs / Symptoms / Labs Results and Location in Medical Record [x] Sepsis due to right lower lobe PNA? Gram negative UTI DS 08/12 [x] Chest Xray: Subsegmental atelectasis vs. consolidation at the right lung base Chest Xray 08/15 [x] intermittent fever since 08/14 DS 08/12 [x] Patient also has leukocytosis with WBC 13.1? Sepsis PN 08/15 [x] Temp=98.8 YS=097/94 Respi=20 Pulse=55 Vital Signs 08/13 [x] WBC: 08/13=12.3 08/15=13.1 Laboratory 08/13 [x] Blood culture: no growth Laboratory 08/15 [x] Urine culture: Klebsiella Laboratory 08/15 Present Risk Factors Results and Location in Medical Record [x] 70 years old male DS 08/17 [x] ICH PN 08/13 [x] UTI DS 08/17 [x] PNA DS 08/17 Present Treatments Results and Location in Medical Record [x] IVF MAR 08/12 [x] Rocephin 2gm IV OCT 08 [x] Doxycyline 100mg IV OCT 08 CDS/Three Knife Trimmer Signature:Russell Ronquillo Phone #: [phone] Date/Time:08/20/20 This is a permanent part of the Medical Record [facility]
--- NOTE | 2020-08-20 06:22 | PQF ---
CLINICAL DOCUMENTATION CLARIFICATION FORM: Dear : Connor Ascencio Date / Time: 08/20/20 06:21 Please exercise your independent, professional judgment in responding to the clarification form. Clinical indicators are provided on the bottom of this form for your review Please check appropriate box(es): [ ] Non traumatic left cerebellar hemorrhage [ ] Traumatic left cerebellar hemorrhage [ ] With LOC, please specify: [ ] Without LOC [ ] Other diagnosis [ x ] Unable to determine Physician Signature: Date/Time: For continuity of documentation, please document condition throughout progress notes and discharge summary. Thank You. To be completed by CDI/Coding staff for physician review: Present Clinical Indicators - Signs / Symptoms / Labs Results and Location in Medical Record [x] left Superior cerebellar hemorrhage without obstruction of the fourth ventricle DS 08/17 [x] presenting with AMS ED Notes 08/12 [x] GCS: 12 ED Notes 08/12 [x] NIHSS 9 ED Notes 08/12 [x] Fell on the floor HP 08/12 [x] He does have some left sided weakness and left facial droop Consult 08/12 [x] ICH possibly due to HTN PN 08/13 Present Risk Factors Results and Location in Medical Record [x] 70 years old male DS 08/17 [x] HTN DS 08/17 [x] Cerebral edema DS 08/17 [x] Old CVA ED Notes 08/12 [x] s/p fall HP 08/12 Present Treatments Results and Location in Medical Record [x] Admit to ICU HP 08/12 [x] Neuro Consult Consult 08/12 [x] Altaplase 100mg IV OCT 08 [x] Nicardipine 20mg IV OCT 08 CDS/Char House Supervisor Signature:Russell Ronquillo Phone #: [phone] Date/Time:08/20/20 This is a permanent part of the Medical Record [facility]
== END 2020-08-17 18:40 | DRG 64 ==
LOC: ERS 18:30 → ERHOLD 19:43 → 2SE 08-13 16:40
PROVIDERS: ADMIT Student in an Organized Health Care Education/Training Program; ATTEND Internal Medicine
DX: I61.4 Nontraumatic intracerebral hemorrhage in cerebellum (principal); G93.6 Cerebral edema; A41.9 Sepsis, unspecified organism; J18.9 Pneumonia, unspecified organism; I16.1 Hypertensive emergency; G93.49 Other encephalopathy; N39.0 Urinary tract infection, site not specified; I69.354 Hemiplegia and hemiparesis following cerebral infarction affecting left non-dominant side; Z23 Encounter for immunization; Z20.822 Contact with and (suspected) exposure to COVID-19; R29.810 Facial weakness; I10 Essential (primary) hypertension; R40.2362 Coma scale, best motor response, obeys commands, at arrival to emergency department; R40.2122 Coma scale, eyes open, to pain, at arrival to emergency department; R40.2242 Coma scale, best verbal response, confused conversation, at arrival to emergency department; R29.709 NIHSS score 9; Z91.81 History of falling; Z79.899 Other long term (current) drug therapy; B96.89 Other specified bacterial agents as the cause of diseases classified elsewhere
CPT/HCPCS: 36415; 36416; 51702; 70450; 70496; 70498; 71045; 80048; 80053; 81001; 81003; 81015; 83735; 84484; 85025; 85610; 85730; 86140; 87040; 87077; 87086; 87186; 90471; 90662; 90732; 93005; 93970; 94760; 96365; 96366; 96368; 96375; G0008; G0009; J0696; J2405; J2550; J2997; J3490; Q9967; U0002

== ENCOUNTER 2022-02-28 20:18 | Inpatient (IN) | payer MEDICARE ==
[~2022-02-28 20:18] MED LIST changes: +Iopamidol 370 76% 100 ML VIAL ONE; -Iopamidol-370 76% 500 ML 1 ML ONE
[2022-02-28 21:08] LABS: #Eosinphils 0.2 thou/uL (0.0-0.7); #Lymphocytes 2.2 thou/uL (1.20-3.40); #Monocytes 0.5 thou/uL (0.11-0.59); #Neutrophils 3.5 thou/uL (1.40-6.50); %Basophils 0.7 % (0.0-1.0); %Eosinophils 3.5 % (0.0-10.0); %Monocytes 7.7 % (0.0-10.0); %Neutrophils 54.2 % (42.0-75.0); Hemoglobin 14.2 g/dL (14.0-18.0); Mean Corpuscular Hemoglobin 26.6 pg (27.0-31.0); Mean Corpuscular Volume 85.8 fL (78.0-98.0); Platelet Count 370 thou/uL (130-400); Red Blood Cell (RBC) Count 5.35 mill/uL (4.70-6.10); White Blood Cell (WBC) Count 6.5 thou/uL (4.8-10.8)
[2022-02-28 21:22] LABS: ALT (SGPT) 12 U/L (8-55); AST (SGOT) 15 U/L (5-34); Albumin 3.7 g/dL (3.4-4.8); Alkaline Phosphatase 104 U/L (40-110); Anion Gap 16 mmol/L (10-20); BUN (Urea Nitrogen) 13 mg/dL (8.4-25.7); Bilirubin, Total 0.9 mg/dL (0.2-1.2); Calc. Creatinine Clearance 0 mL/min (70-130); Calcium 9.3 mg/dL (7.8-10.44); Carbon Dioxide 24 mmol/L (23-31); Chloride 100 mmol/L (98-107); Estimated GFR 91; Globulin 4.1 g/dL (2.4-3.5); Glucose 100 mg/dL (83-110); Potassium 3.6 mmol/L (3.5-5.1); Protein, Total 7.8 g/dL (5.8-8.1); Sodium 136 mmol/L (136-145)
[2022-02-28 23:31] LABS: Bilirubin Negative (Negative); Blood, Urine Negative (Negative); Clarity Clear (Clear); Glucose, Urine (Dipstick) Normal (Negative); Ketone, Urine Trace mg/dL (Negative); Leukocyte 25 Leu/uL (Negative); Mucous/LPF Rare LPF (<2+); Nitrite Negative (Negative); Protein, Urine (Dipstick) Negative (Neg-Trace); Specific Gravity, Urine 1.028 (1.002-1.036)
[2022-02-28 23:36] LABS: Bacteria/HPF Rare-Few HPF (None Seen); RBC/HPF 0-3 HPF (0-3); Squamous Epithelial 0-3 HPF (0-3); WBC/HPF 0-3 HPF (0-3)
[2022-03-01 00:45] LABS: Acetaminophen Less than 10.0 mcg/mL (10.0-30.0); Alcohol Less than 10 mg/dL (Less than 10); Salicylate Less than 8.0 mg/dL (15.0-30.0)
[2022-03-01 03:02] LABS: Amphetamine Not Detected (NotDetected); Barbiturates Screen Not Detected (NotDetected); Benzodiazepine Screen Not Detected (NotDetected); Cocaine Metabolite Screen Not Detected (NotDetected); Methadone Not Detected (NotDetected); Methamphetamine Not Detected (NotDetected); Opiate Screen Not Detected (NotDetected); Oxycodone Screen Not Detected (NotDetected); Phencyclidine (PCP) Not Detected (NotDetected); THC/Cannabinoid Screen Not Detected (NotDetected); Tricyclic Screen Not Detected (NotDetected)
[2022-03-01 03:54] VITALS: BMI 25.0
[2022-03-01] MEDS ORDERED: Acetaminophen 650 MG Suppository PR PRN (04:59)
[2022-03-01] MEDS ORDERED: Acetaminophen 325 MG TAB PO PRN (04:59)
[2022-03-01] MEDS ORDERED: Ondansetron ODT 4 MG TAB PO PRN (04:59)
[2022-03-01] MEDS ORDERED: Ondansetron PF 4 MG/2 ML Vial IVP PRN (04:59)
[2022-03-01 05:31] LABS: SARS-CoV-2 NAA Rapid Test DETECTED (NotDetected)
[2022-03-01 08:13] LABS: ALT (SGPT) 9 U/L (8-55); AST (SGOT) 14 U/L (5-34); Albumin 3.6 g/dL (3.4-4.8); Alkaline Phosphatase 97 U/L (40-110); Anion Gap 16 mmol/L (10-20); BUN (Urea Nitrogen) 11 mg/dL (8.4-25.7); CRP (Inflammatory) 1.31 mg/dL (= or < 0.5); Calc. Creatinine Clearance 98 mL/min (70-130); Calcium 9.2 mg/dL (7.8-10.44); Carbon Dioxide 23 mmol/L (23-31); Chloride 100 mmol/L (98-107); Estimated GFR 93; Globulin 4.5 g/dL (2.4-3.5); Glucose 87 mg/dL (83-110); Potassium 3.6 mmol/L (3.5-5.1); Protein, Total 8.1 g/dL (5.8-8.1); Sodium 135 mmol/L (136-145)
[2022-03-01 08:19] LABS: #Eosinphils 0.2 thou/uL (0.0-0.7); #Lymphocytes 2.3 thou/uL (1.20-3.40); #Monocytes 0.6 thou/uL (0.11-0.59); #Neutrophils 3.7 thou/uL (1.40-6.50); %Basophils 0.6 % (0.0-1.0); %Eosinophils 2.3 % (0.0-10.0); %Lymphocytes 33.2 % (21.0-51.0); %Monocytes 9.1 % (0.0-10.0); %Neutrophils 54.8 % (42.0-75.0); Hemoglobin 13.8 g/dL (14.0-18.0); Mean Corpuscular HGB CONC 30.6 g/dL (32.0-36.0); Mean Corpuscular Volume 85.1 fL (78.0-98.0); Mean Platelet Volume 8.1 fL (7.4-10.4); Platelet Count 395 thou/uL (130-400); RBC Distribution Width 14.3 % (11.5-14.5); Red Blood Cell (RBC) Count 5.29 mill/uL (4.70-6.10); White Blood Cell (WBC) Count 6.8 thou/uL (4.8-10.8)
[2022-03-01] MEDS: Enoxaparin Sodium 40 MG/0.4 ML SYRINGE SC SCH (08:41)
[2022-03-01] MEDS: Cholecalciferol (Vitamin D3) 400 UNITS TAB PO SCH (08:41)
[2022-03-01] MEDS: Ascorbic Acid 500 mg Chewable Tablet PO SCH (08:42)
[2022-03-01] MEDS: Zinc Sulfate 220 MG CAP PO SCH (08:42)
[2022-03-01] MEDS: Lisinopril 10 MG TAB PO SCH (21:07)
[2022-03-01] MEDS: Atorvastatin Calcium 40 MG TAB PO SCH (21:07)
[2022-03-02 07:54] LABS: Anion Gap 15 mmol/L (10-20); BUN (Urea Nitrogen) 10 mg/dL (8.4-25.7); Calc. Creatinine Clearance 90 mL/min (70-130); Carbon Dioxide 24 mmol/L (23-31); Chloride 101 mmol/L (98-107); Estimated GFR 91; Glucose 84 mg/dL (83-110); Potassium 4.7 mmol/L (3.5-5.1); Sodium 135 mmol/L (136-145)
[2022-03-02 08:25] LABS: Hemoglobin 13.8 g/dL (14.0-18.0); Mean Corpuscular Hemoglobin 26.7 pg (27.0-31.0); Mean Corpuscular Volume 86.1 fL (78.0-98.0); Mean Platelet Volume 8.5 fL (7.4-10.4); Platelet Count 357 thou/uL (130-400); RBC Distribution Width 14.3 % (11.5-14.5); Red Blood Cell (RBC) Count 5.18 mill/uL (4.70-6.10); White Blood Cell (WBC) Count 6.3 thou/uL (4.8-10.8)
[2022-03-02] MEDS: Ascorbic Acid 500 mg Chewable Tablet PO SCH (10:03)
[2022-03-02] MEDS: Lisinopril 10 MG TAB PO SCH ×2 (10:03→20:43)
[2022-03-02] MEDS: Cholecalciferol (Vitamin D3) 400 UNITS TAB PO SCH (10:03)
[2022-03-02] MEDS: Amlodipine 5 MG TAB PO SCH (10:03)
[2022-03-02] MEDS: Citalopram 20 MG TAB PO SCH (10:03)
[2022-03-02] MEDS: Enoxaparin Sodium 40 MG/0.4 ML SYRINGE SC SCH (10:04)
[2022-03-02] MEDS: Clopidogrel Bisulfate 75 MG TAB PO SCH (10:04)
[2022-03-02] MEDS: Zinc Sulfate 220 MG CAP PO SCH (10:04)
[2022-03-02] MEDS: Tamsulosin HCl 0.4 MG CAP PO SCH (10:04)
[2022-03-02 10:11] LABS: Eosinophils 1 % (0-10); Lymphocytes 40 % (21-51); MDiff Complete? YES; Microcytosis SLIGHT = 6-15 cells (100X) (0-5/hpf); Monocytes 6 % (0-10); Neutrophil 53 % (42-75); Platelet Morphology Comment Appears Adequate
[2022-03-02] MEDS: Atorvastatin Calcium 40 MG TAB PO SCH (20:43)
[2022-03-03 06:47] LABS: Anion Gap 13 mmol/L (10-20); BUN (Urea Nitrogen) 12 mg/dL (8.4-25.7); Calc. Creatinine Clearance 86 mL/min (70-130); Calcium 8.9 mg/dL (7.8-10.44); Carbon Dioxide 27 mmol/L (23-31); Chloride 101 mmol/L (98-107); Estimated GFR 88; Glucose 86 mg/dL (83-110); Potassium 3.7 mmol/L (3.5-5.1); Sodium 137 mmol/L (136-145)
[2022-03-03 07:09] LABS: Hemoglobin 13.8 g/dL (14.0-18.0); Mean Corpuscular HGB CONC 31.2 g/dL (32.0-36.0); Mean Corpuscular Hemoglobin 26.9 pg (27.0-31.0); Mean Corpuscular Volume 86.4 fL (78.0-98.0); Mean Platelet Volume 8.1 fL (7.4-10.4); Platelet Count 346 thou/uL (130-400); RBC Distribution Width 14.3 % (11.5-14.5); Red Blood Cell (RBC) Count 5.14 mill/uL (4.70-6.10); White Blood Cell (WBC) Count 5.9 thou/uL (4.8-10.8)
[2022-03-03] MEDS: Tamsulosin HCl 0.4 MG CAP PO SCH (09:50)
[2022-03-03] MEDS: Clopidogrel Bisulfate 75 MG TAB PO SCH (09:50)
[2022-03-03] MEDS: Ascorbic Acid 500 mg Chewable Tablet PO SCH (09:50)
[2022-03-03] MEDS: Enoxaparin Sodium 40 MG/0.4 ML SYRINGE SC SCH (09:50)
[2022-03-03] MEDS: Amlodipine 5 MG TAB PO SCH (09:50)
[2022-03-03] MEDS: Zinc Sulfate 220 MG CAP PO SCH (09:51)
[2022-03-03] MEDS: Citalopram 20 MG TAB PO SCH (09:51)
[2022-03-03] MEDS: Cholecalciferol (Vitamin D3) 400 UNITS TAB PO SCH (09:51)
[2022-03-03] MEDS: Lisinopril 10 MG TAB PO SCH ×2 (09:51→22:21)
[2022-03-03 11:54] LABS: Band 1 % (5-11); Eosinophils 3 % (0-10); Lymphocytes 30 % (21-51); MDiff Complete? YES; Monocytes 8 % (0-10); Neutrophil 58 % (42-75); Platelet Morphology Comment Appears Adequate; RBC Morphology Normal
[2022-03-03] MEDS: Atorvastatin Calcium 40 MG TAB PO SCH (22:21)
[2022-03-04] MEDS: Enoxaparin Sodium 40 MG/0.4 ML SYRINGE SC SCH (09:09)
[2022-03-04] MEDS: Lisinopril 10 MG TAB PO SCH ×2 (09:10→20:21)
[2022-03-04] MEDS: Ascorbic Acid 500 mg Chewable Tablet PO SCH (09:10)
[2022-03-04] MEDS: Tamsulosin HCl 0.4 MG CAP PO SCH (09:11)
[2022-03-04] MEDS: Citalopram 20 MG TAB PO SCH (09:12)
[2022-03-04] MEDS: Zinc Sulfate 220 MG CAP PO SCH (09:12)
[2022-03-04] MEDS: Cholecalciferol (Vitamin D3) 400 UNITS TAB PO SCH (09:13)
[2022-03-04] MEDS: Clopidogrel Bisulfate 75 MG TAB PO SCH (09:14)
[2022-03-04] MEDS: Amlodipine 5 MG TAB PO SCH (09:15)
[2022-03-04] MEDS: Atorvastatin Calcium 40 MG TAB PO SCH (20:21)
[2022-03-05] MEDS: Enoxaparin Sodium 40 MG/0.4 ML SYRINGE SC SCH (08:44)
[2022-03-05] MEDS: Citalopram 20 MG TAB PO SCH (08:45)
[2022-03-05] MEDS: Tamsulosin HCl 0.4 MG CAP PO SCH (08:45)
[2022-03-05] MEDS: Zinc Sulfate 220 MG CAP PO SCH (08:45)
[2022-03-05] MEDS: Ascorbic Acid 500 mg Chewable Tablet PO SCH (08:45)
[2022-03-05] MEDS: Clopidogrel Bisulfate 75 MG TAB PO SCH (08:45)
[2022-03-05] MEDS: Lisinopril 10 MG TAB PO SCH ×2 (08:45→20:44)
[2022-03-05] MEDS: Cholecalciferol (Vitamin D3) 400 UNITS TAB PO SCH (08:45)
[2022-03-05] MEDS: Amlodipine 5 MG TAB PO SCH (08:45)
[2022-03-05] MEDS: Atorvastatin Calcium 40 MG TAB PO SCH (20:44)
[2022-03-06] MEDS: Clopidogrel Bisulfate 75 MG TAB PO SCH (08:28)
[2022-03-06] MEDS: Cholecalciferol (Vitamin D3) 400 UNITS TAB PO SCH (08:28)
[2022-03-06] MEDS: Tamsulosin HCl 0.4 MG CAP PO SCH (08:28)
[2022-03-06] MEDS: Ascorbic Acid 500 mg Chewable Tablet PO SCH (08:28)
[2022-03-06] MEDS: Zinc Sulfate 220 MG CAP PO SCH (08:31)
[2022-03-06] MEDS: Enoxaparin Sodium 40 MG/0.4 ML SYRINGE SC SCH (08:31)
[2022-03-06] MEDS: Amlodipine 5 MG TAB PO SCH (08:31)
[2022-03-06] MEDS: Lisinopril 10 MG TAB PO SCH ×2 (08:34→21:25)
[2022-03-06] MEDS: Citalopram 20 MG TAB PO SCH (08:36)
[2022-03-06] MEDS: Atorvastatin Calcium 40 MG TAB PO SCH (21:29)
[2022-03-07] MEDS: Hydrochlorothiazide 25 MG TAB PO SCH (10:28)
[2022-03-07] MEDS: Tamsulosin HCl 0.4 MG CAP PO SCH (10:28)
[2022-03-07] MEDS: Citalopram 20 MG TAB PO SCH (10:28)
[2022-03-07] MEDS: Cholecalciferol (Vitamin D3) 400 UNITS TAB PO SCH (10:28)
[2022-03-07] MEDS: Enoxaparin Sodium 40 MG/0.4 ML SYRINGE SC SCH (10:28)
[2022-03-07] MEDS: Ascorbic Acid 500 mg Chewable Tablet PO SCH (10:28)
[2022-03-07] MEDS: Clopidogrel Bisulfate 75 MG TAB PO SCH (10:29)
[2022-03-07] MEDS: Lisinopril 10 MG TAB PO SCH ×2 (10:29→21:08)
[2022-03-07] MEDS: Zinc Sulfate 220 MG CAP PO SCH (10:29)
[2022-03-07] MEDS: Amlodipine 5 MG TAB PO SCH ×2 (10:30→21:08)
[2022-03-07] MEDS: Atorvastatin Calcium 40 MG TAB PO SCH (21:08)
[2022-03-08] MEDS: Ascorbic Acid 500 mg Chewable Tablet PO SCH (08:43)
[2022-03-08] MEDS: Enoxaparin Sodium 40 MG/0.4 ML SYRINGE SC SCH (08:44)
[2022-03-08] MEDS: Clopidogrel Bisulfate 75 MG TAB PO SCH (08:44)
[2022-03-08] MEDS: Cholecalciferol (Vitamin D3) 400 UNITS TAB PO SCH (08:44)
[2022-03-08] MEDS: Tamsulosin HCl 0.4 MG CAP PO SCH (08:44)
[2022-03-08] MEDS: Zinc Sulfate 220 MG CAP PO SCH (08:44)
[2022-03-08] MEDS: Hydrochlorothiazide 25 MG TAB PO SCH (08:44)
[2022-03-08] MEDS: Citalopram 20 MG TAB PO SCH (08:44)
[2022-03-08] MEDS: Amlodipine 5 MG TAB PO SCH ×2 (17:48→20:35)
[2022-03-08] MEDS: Mirtazapine 15 MG TAB PO SCH ×2 (20:33→20:35)
[2022-03-08] MEDS: Atorvastatin Calcium 40 MG TAB PO SCH (20:35)
[2022-03-09] MEDS: Enoxaparin Sodium 40 MG/0.4 ML SYRINGE SC SCH (08:22)
[2022-03-09] MEDS: Zinc Sulfate 220 MG CAP PO SCH (08:23)
[2022-03-09] MEDS: Cholecalciferol (Vitamin D3) 400 UNITS TAB PO SCH (08:23)
[2022-03-09] MEDS: Ascorbic Acid 500 mg Chewable Tablet PO SCH (08:23)
[2022-03-09] MEDS: Citalopram 20 MG TAB PO SCH (08:24)
[2022-03-09] MEDS: Clopidogrel Bisulfate 75 MG TAB PO SCH (08:24)
[2022-03-09] MEDS: Amlodipine 5 MG TAB PO SCH ×2 (08:24→21:08)
[2022-03-09] MEDS: Tamsulosin HCl 0.4 MG CAP PO SCH (08:24)
[2022-03-09] MEDS: Atorvastatin Calcium 40 MG TAB PO SCH (21:08)
[2022-03-10] MEDS: Enoxaparin Sodium 40 MG/0.4 ML SYRINGE SC SCH (08:37)
[2022-03-10] MEDS: Clopidogrel Bisulfate 75 MG TAB PO SCH (08:38)
[2022-03-10] MEDS: Zinc Sulfate 220 MG CAP PO SCH (08:38)
[2022-03-10] MEDS: Ascorbic Acid 500 mg Chewable Tablet PO SCH (08:38)
[2022-03-10] MEDS: Amlodipine 5 MG TAB PO SCH ×2 (08:38→21:49)
[2022-03-10] MEDS: Tamsulosin HCl 0.4 MG CAP PO SCH (08:38)
[2022-03-10] MEDS: Cholecalciferol (Vitamin D3) 400 UNITS TAB PO SCH (08:38)
[2022-03-10] MEDS: Citalopram 20 MG TAB PO SCH (08:38)
[2022-03-10] MEDS: Senokot S 8.6-50 MG TAB PO SCH ×2 (08:44→21:50)
[2022-03-10] MEDS: Polyethylene Glycol 3350 17 GM Packet PO SCH (08:44)
[2022-03-10] MEDS: Atorvastatin Calcium 40 MG TAB PO SCH (21:49)
[2022-03-10] MEDS: Mirtazapine 15 MG TAB PO SCH (21:49)
[2022-03-11 07:54] VITALS: TEMP 98.3
[2022-03-11] MEDS ORDERED: hydrALAZINE 20 MG/ML VIAL SLOW IVP PRN (08:35)
[2022-03-11] MEDS: Ascorbic Acid 500 mg Chewable Tablet PO SCH (10:03)
[2022-03-11] MEDS: Amlodipine 5 MG TAB PO SCH (10:03)
[2022-03-11] MEDS: Enoxaparin Sodium 40 MG/0.4 ML SYRINGE SC SCH (10:03)
[2022-03-11] MEDS: Citalopram 20 MG TAB PO SCH (10:03)
[2022-03-11] MEDS: Cholecalciferol (Vitamin D3) 400 UNITS TAB PO SCH (10:03)
[2022-03-11] MEDS: Clopidogrel Bisulfate 75 MG TAB PO SCH (10:03)
[2022-03-11] MEDS: Tamsulosin HCl 0.4 MG CAP PO SCH (10:04)
[2022-03-11] MEDS: Senokot S 8.6-50 MG TAB PO SCH (10:09)
[2022-03-11 11:42] VITALS: BP 136/85
[2022-03-11] MEDS: Zinc Sulfate 220 MG CAP PO SCH (12:21)
[2022-03-11] MEDS: Polyethylene Glycol 3350 17 GM Packet PO SCH (12:22)
== END 2022-03-11 13:58 | disposition swing bed (61) | DRG 177 ==
LOC: ERS 20:18 → SURG A 03-01 01:37 → OBSVTOIN 03-01 10:40
PROVIDERS: ADMIT Family Medicine; ATTEND Family Medicine
PROC: 8E0ZXY6 Isolation (ICD-10-PCS; principal; 2022-03-01)
DX: U07.1 COVID-19 (principal); G93.41 Metabolic encephalopathy; Z66 Do not resuscitate; I69.954 Hemiplegia and hemiparesis following unspecified cerebrovascular disease affecting left non-dominant side; I10 Essential (primary) hypertension; E78.5 Hyperlipidemia, unspecified; F01.50 Vascular dementia, unspecified severity, without behavioral disturbance, psychotic disturbance, mood disturbance, and anxiety; Z79.899 Other long term (current) drug therapy
CPT/HCPCS: 36415; 51701; 70450; 71045; 74177; 80048; 80053; 80306; 80307; 81003; 81015; 83605; 85025; 86140; 93005; 96372; G0378; J1650; Q9967; U0002

== ENCOUNTER 2023-12-17 10:31 | Outpatient (CLI) | payer MEDICARE | END 2023-12-17 10:32 | disposition home or self-care (01) | LOC: ULT 10:31 | PROVIDERS: ATTEND Family Medicine | DX: N44.8 Other noninflammatory disorders of the testis (principal); K40.90 Unilateral inguinal hernia, without obstruction or gangrene, not specified as recurrent | CPT/HCPCS: 76870; 93976 ==

== ENCOUNTER 2024-03-26 13:45 | Inpatient (IN) | payer MEDICARE, MEDICAID ==
[2024-03-26 14:54] LABS: #Basophils Less than 0.03 10x3/uL (0.0-0.2); %Basophils 0.1 % (0.0-1.0); %Lymphocytes 9.1 % (21.0-51.0); %Monocytes 9.5 % (0.0-10.0); %Neutrophils 79.4 % (42.0-75.0); Hematocrit 21.1 % (42.0-52.0); Hemoglobin 6.5 g/dL (14.0-18.0); Mean Corpuscular HGB CONC 30.8 g/dL (32.0-36.0); Mean Corpuscular Hemoglobin 26.4 pg (27.0-31.0); Mean Corpuscular Volume 85.8 fL (78.0-98.0); Mean Platelet Volume 11.5 fL (7.4-10.4); Platelet Count 317 10x3/uL (130-400); RBC Distribution Width 16.5 % (11.5-14.5); Red Blood Cell (RBC) Count 2.46 mill/uL (4.70-6.10)
[2024-03-26 15:00] LABS: Actual Bicarbonate (HCO3v) 27.1 mEq/L (22-28); Base Excess 3.9 mEq/L (-2.0 to +3.0); Calcium, Ionized (venous) 1.02 mmol/L (1.16-1.32); Chloride (VBG) 111 mmol/L (98-106); Hematocrit-VBG 30 % (42.0-52.0); Hemoglobin (Hb) 10.1 g/dL (12.6-17.4); Potassium (VBG) 4.09 mmol/L (3.70-5.30); Sodium 150 mmol/L (133-146); pH (venous) 7.501 (7.32-7.43)
[2024-03-26 15:10] LABS: ALT (SGPT) 10 U/L (8-55); AST (SGOT) 13 U/L (5-34); Albumin 2.5 g/dL (3.4-4.8); Alkaline Phosphatase 65 U/L (40-110); Anion Gap 17 mmol/L (10-20); BUN (Urea Nitrogen) 66 mg/dL (8.4-25.7); Bilirubin, Total 0.6 mg/dL (0.2-1.2); Calc. Creatinine Clearance 0 mL/min (70-130); Calcium 8.3 mg/dL (7.8-10.44); Carbon Dioxide 25 mmol/L (23-31); Chloride 111 mmol/L (98-107); Estimated GFR 38; Globulin 5.5 g/dL (2.4-3.5); Glucose 109 mg/dL (83-110); Potassium 3.9 mmol/L (3.5-5.1); Sodium 149 mmol/L (136-145)
[2024-03-26 15:14] LABS: Troponin I 0.016 ng/mL (< 0.028)
[2024-03-26] MEDS ORDERED: Iopamidol-370 76% 500 ML MDV (1 ML CHARGE) ONE (15:45)
[2024-03-26] MEDS ORDERED: Piperacillin/Tazobactam 4.5 GM VIAL ONE (16:04)
[2024-03-26 18:23] VITALS: BMI 28.6
[2024-03-26] MEDS: Clindamycin/D5W 900 MG in Premix 1 BAG IVPB SCH (18:27)
[2024-03-26] MEDS: Vancomycin (BATCH) 2 GM in Premix 1 BAG IVPB SCH (18:28)
[2024-03-26] MEDS: Sodium Chloride 0.9% 1,000 ML IV SCH (18:33)
[2024-03-26] MEDS ORDERED: Vancomycin Dose by Levels Sliding Scale (Wt 71-99) FS SCH (18:45)
[2024-03-26] MEDS: Ipratropium/Albuterol 3 ML NEB NEB SCH (19:36)
[2024-03-26 20:31] LABS: Base Excess (BEa) 1.3 mEq/L (-2.0 to +3.0); CO2 Tension 48.5 mmHg (35.0-45.0); Hematocrit-ABG 26 % (42.0-52.0); O2 Tension (PaO2), arterial 80.4 mmHg (> 70.0); Potassium - ABG Lab 4.24 mmol/L (3.70-5.30); pH, Arterial 7.364 (7.35-7.45)
[2024-03-26 20:33] LABS: ALV-art Gradient 72.875 mmHg (0-20); Puncture Site RR
[2024-03-26] MEDS ORDERED: Vancomycin 1 GM in Sodium Chloride 0.9% 250 ML 250 ML IVPB SCH (21:00)
[2024-03-26 21:31] LABS: #Basophils Less than 0.03 10x3/uL (0.0-0.2); #Eosinphils Less than 0.03 10x3/uL (0.0-0.7); %Lymphocytes 5.9 % (21.0-51.0); %Monocytes 1.2 % (0.0-10.0); %Neutrophils 92.4 % (42.0-75.0); Hematocrit 28.2 % (42.0-52.0); Hemoglobin 8.7 g/dL (14.0-18.0); Mean Corpuscular HGB CONC 30.9 g/dL (32.0-36.0); Mean Corpuscular Hemoglobin 26.7 pg (27.0-31.0); Mean Corpuscular Volume 86.5 fL (78.0-98.0); Mean Platelet Volume 10.9 fL (7.4-10.4); Platelet Count 234 10x3/uL (130-400); RBC Distribution Width 16.7 % (11.5-14.5); Red Blood Cell (RBC) Count 3.26 mill/uL (4.70-6.10)
[2024-03-26] MEDS: Famotidine/PF 20 mg/2ml Vial SLOW IVP SCH (21:35)
[2024-03-26 21:51] LABS: Anion Gap 16 mmol/L (10-20); BUN (Urea Nitrogen) 56 mg/dL (8.4-25.7); Calc. Creatinine Clearance 55 mL/min (70-130); Calcium 7.9 mg/dL (7.8-10.44); Carbon Dioxide 25 mmol/L (23-31); Chloride 113 mmol/L (98-107); Estimated GFR 50; Glucose 142 mg/dL (83-110); Potassium 4.4 mmol/L (3.5-5.1); Sodium 150 mmol/L (136-145)
[2024-03-26] MEDS: Dextrose 5% in Water 1,000 ML IV SCH (22:38)
[2024-03-26 22:56] LABS: Magnesium 3.1 mg/dL (1.6-2.6)
[2024-03-27] MEDS: Cefepime 1 GM in Sodium Chloride 0.9% 100 ML IVPB SCH (00:44)
[2024-03-27 01:24] LABS: Bilirubin Negative (Negative); Blood, Urine 3+ (Negative); CAUTI Indications for Culture Alt mental st,lethar; Clarity Turbid (Clear); Glucose, Urine (Dipstick) Normal (Negative); Ketone, Urine Negative (Negative); Leukocyte 500 Leu/uL (Negative); Nitrite Negative (Negative); Protein, Urine (Dipstick) 20 mg/dL (Neg-Trace); RBC/HPF Greater than 50 HPF (0-3); Squamous Epithelial 0-3 HPF (0-3); Urobilinogen Normal mg/dL (Less than 2); WBC/HPF Greater than 50 HPF (0-3)
[2024-03-27 01:36] LABS: Bacteria/HPF 1+ HPF (None Seen)
[2024-03-27 01:37] LABS: Urine Culture Reflex Yes Yes
[2024-03-27] MEDS ORDERED: Clindamycin/D5W 900 MG in Premix 1 BAG IVPB SCH (02:00)
[2024-03-27 04:50] LABS: #Basophils Less than 0.03 10x3/uL (0.0-0.2); #Eosinphils Less than 0.03 10x3/uL (0.0-0.7); %Monocytes 5.9 % (0.0-10.0); %Neutrophils 87.3 % (42.0-75.0); Hematocrit 26.8 % (42.0-52.0); Hemoglobin 8.2 g/dL (14.0-18.0); Mean Corpuscular HGB CONC 30.6 g/dL (32.0-36.0); Mean Corpuscular Hemoglobin 26.2 pg (27.0-31.0); Mean Corpuscular Volume 85.6 fL (78.0-98.0); Mean Platelet Volume 11.5 fL (7.4-10.4); Platelet Count 246 10x3/uL (130-400); RBC Distribution Width 16.7 % (11.5-14.5); Red Blood Cell (RBC) Count 3.13 mill/uL (4.70-6.10)
[2024-03-27 05:16] LABS: Anion Gap 14 mmol/L (10-20); BUN (Urea Nitrogen) 50 mg/dL (8.4-25.7); Calc. Creatinine Clearance 66 mL/min (70-130); Carbon Dioxide 28 mmol/L (23-31); Chloride 113 mmol/L (98-107); Estimated GFR 63; Glucose 193 mg/dL (83-110); Magnesium 3.1 mg/dL (1.6-2.6); Potassium 4.3 mmol/L (3.5-5.1); Sodium 151 mmol/L (136-145)
[2024-03-27] MEDS: Dextrose 5% in Water 1,000 ML IV SCH (05:25)
[2024-03-27 12:48] LABS: Anion Gap 12 mmol/L (10-20); BUN (Urea Nitrogen) 42 mg/dL (8.4-25.7); Calc. Creatinine Clearance 73 mL/min (70-130); Calcium 8.2 mg/dL (7.8-10.44); Carbon Dioxide 30 mmol/L (23-31); Chloride 113 mmol/L (98-107); Estimated GFR 71; Glucose 190 mg/dL (83-110); Potassium 4.1 mmol/L (3.5-5.1); Sodium 151 mmol/L (136-145)
[2024-03-27 18:39] LABS: Anion Gap 15 mmol/L (10-20); BUN (Urea Nitrogen) 38 mg/dL (8.4-25.7); Calc. Creatinine Clearance 82 mL/min (70-130); Calcium 8.2 mg/dL (7.8-10.44); Carbon Dioxide 26 mmol/L (23-31); Chloride 112 mmol/L (98-107); Estimated GFR 81; Glucose 161 mg/dL (83-110); Sodium 149 mmol/L (136-145)
[2024-03-27] MEDS: Vancomycin (BATCH) 1.5 GM in Premix 1 BAG IVPB SCH (20:09)
[2024-03-28] MEDS: Dextrose 5% in Water 1,000 ML IV SCH
[2024-03-28 04:49] LABS: #Basophils Less than 0.03 10x3/uL (0.0-0.2); %Basophils 0.1 % (0.0-1.0); %Eosinophils 0.6 % (0.0-10.0); %Lymphocytes 9.3 % (21.0-51.0); %Neutrophils 79.3 % (42.0-75.0); Hematocrit 27.9 % (42.0-52.0); Hemoglobin 8.4 g/dL (14.0-18.0); Mean Corpuscular HGB CONC 30.1 g/dL (32.0-36.0); Mean Corpuscular Hemoglobin 25.5 pg (27.0-31.0); Mean Corpuscular Volume 84.8 fL (78.0-98.0); Mean Platelet Volume 11.6 fL (7.4-10.4); Platelet Count 259 10x3/uL (130-400); RBC Distribution Width 16.9 % (11.5-14.5); Red Blood Cell (RBC) Count 3.29 mill/uL (4.70-6.10)
[2024-03-28 05:04] LABS: Vancomycin, Random 24.3 ug/mL (See Comment)
[2024-03-28 05:06] LABS: Anion Gap 11 mmol/L (10-20); BUN (Urea Nitrogen) 27 mg/dL (8.4-25.7); Calc. Creatinine Clearance 102 mL/min (70-130); Calcium 7.8 mg/dL (7.8-10.44); Carbon Dioxide 29 mmol/L (23-31); Chloride 110 mmol/L (98-107); Estimated GFR 93; Glucose 123 mg/dL (83-110); Potassium 3.3 mmol/L (3.5-5.1); Sodium 147 mmol/L (136-145)
[2024-03-28] MEDS ORDERED: Ipratropium/Albuterol 3 ML NEB NEB PRN (07:37)
[2024-03-28] MEDS: Famotidine/PF 20 mg/2ml Vial SLOW IVP SCH (10:20)
[2024-03-28] MEDS: Potassium Phosphate 22 MMOL in Sodium Chloride 0.9% 250 ML 250 ML IVPB SCH (10:21)
[2024-03-28 10:53] LABS: Phosphorus 2.2 mg/dL (2.3-4.7)
[2024-03-28 10:54] LABS: Magnesium 2.8 mg/dL (1.6-2.6)
[2024-03-28 12:12] VITALS: BMI 28.6
[2024-03-28] MEDS: Cefepime 2 GM in Sodium Chloride 0.9% 100 ML IVPB SCH (13:13)
[2024-03-29 05:08] LABS: #Basophils Less than 0.03 10x3/uL (0.0-0.2); %Basophils 0.3 % (0.0-1.0); %Eosinophils 3.9 % (0.0-10.0); %Monocytes 12.4 % (0.0-10.0); %Neutrophils 69.8 % (42.0-75.0); Hematocrit 28.7 % (42.0-52.0); Hemoglobin 8.8 g/dL (14.0-18.0); Mean Corpuscular HGB CONC 30.7 g/dL (32.0-36.0); Mean Corpuscular Hemoglobin 25.7 pg (27.0-31.0); Mean Corpuscular Volume 83.9 fL (78.0-98.0); Mean Platelet Volume 11.2 fL (7.4-10.4); Platelet Count 275 10x3/uL (130-400); RBC Distribution Width 16.4 % (11.5-14.5); Red Blood Cell (RBC) Count 3.42 mill/uL (4.70-6.10)
[2024-03-29 05:14] LABS: Anion Gap 11 mmol/L (10-20); BUN (Urea Nitrogen) 13 mg/dL (8.4-25.7); Calc. Creatinine Clearance 112 mL/min (70-130); Calcium 7.7 mg/dL (7.8-10.44); Carbon Dioxide 30 mmol/L (23-31); Chloride 107 mmol/L (98-107); Estimated GFR 96; Glucose 111 mg/dL (83-110); Potassium 3.6 mmol/L (3.5-5.1); Sodium 144 mmol/L (136-145)
[2024-03-29] MEDS: Metolazone 5 MG TAB PO SCH (08:51)
[2024-03-29] MEDS: Potassium Chloride 20 MEQ TAB PO SCH (08:51)
[2024-03-29] MEDS: Vancomycin (BATCH) 2 GM in Premix 1 BAG IVPB SCH (20:15)
[2024-03-30 04:59] LABS: #Basophils Less than 0.03 10x3/uL (0.0-0.2); %Basophils 0.3 % (0.0-1.0); %Eosinophils 5.4 % (0.0-10.0); %Lymphocytes 12.7 % (21.0-51.0); %Monocytes 11.9 % (0.0-10.0); %Neutrophils 68.7 % (42.0-75.0); Hematocrit 29.4 % (42.0-52.0); Mean Corpuscular HGB CONC 30.6 g/dL (32.0-36.0); Mean Corpuscular Hemoglobin 26.5 pg (27.0-31.0); Mean Corpuscular Volume 86.5 fL (78.0-98.0); Platelet Count 279 10x3/uL (130-400); RBC Distribution Width 16.1 % (11.5-14.5)
[2024-03-30 05:11] LABS: Albumin 2.2 g/dL (3.4-4.8); Anion Gap 11 mmol/L (10-20); BUN (Urea Nitrogen) 10 mg/dL (8.4-25.7); BUN/Creatinine Ratio 14.93; Calc. Creatinine Clearance 119 mL/min (70-130); Calcium 7.7 mg/dL (7.8-10.44); Carbon Dioxide 28 mmol/L (23-31); Chloride 105 mmol/L (98-107); Estimated GFR 97; Glucose 71 mg/dL (83-110); Phosphorus 2.2 mg/dL (2.3-4.7); Potassium 3.5 mmol/L (3.5-5.1); Sodium 140 mmol/L (136-145)
[2024-03-30 05:14] LABS: Vancomycin, Random 26.2 ug/mL (See Comment)
[2024-03-30 09:33] VITALS: BP 137/78; TEMP 98
[2024-03-30] MEDS: PHOS-NAK 1 PKT PACK PO SCH (09:34)
[2024-03-30] MEDS ORDERED: PARoxetine 20 MG TAB PO SCH (21:00)
[2024-03-30] MEDS ORDERED: Atorvastatin Calcium 40 MG TAB PO SCH (21:00)
[2024-03-30] MEDS ORDERED: Tamsulosin HCl 0.4 MG CAP PO SCH (21:00)
[2024-03-30] MEDS ORDERED: Divalproex Sodium 250 MG (DR) TAB PO SCH (21:00)
[2024-03-31] MEDS ORDERED: Clopidogrel Bisulfate 75 MG TAB PO SCH (09:00)
[2024-03-31] MEDS ORDERED: Ascorbic Acid 500 mg Chewable Tablet PO SCH (09:00)
== END 2024-03-30 13:04 | DRG 189 ==
LOC: ERS 13:45 → 2NO 16:40
PROVIDERS: ADMIT Family Medicine; ATTEND Internal Medicine
PROC: 4A033R1 Measurement of Arterial Saturation, Peripheral, Percutaneous Approach (ICD-10-PCS; principal; 2024-03-26)
DX: J96.21 Acute and chronic respiratory failure with hypoxia (principal); I69.854 Hemiplegia and hemiparesis following other cerebrovascular disease affecting left non-dominant side; N39.0 Urinary tract infection, site not specified; N13.30 Unspecified hydronephrosis; N17.9 Acute kidney failure, unspecified; E87.0 Hyperosmolality and hypernatremia; G93.49 Other encephalopathy; D64.9 Anemia, unspecified; Z66 Do not resuscitate; I44.0 Atrioventricular block, first degree; E87.6 Hypokalemia; E86.9 Volume depletion, unspecified; E86.0 Dehydration; E78.5 Hyperlipidemia, unspecified; I10 Essential (primary) hypertension; F03.90 Unspecified dementia, unspecified severity, without behavioral disturbance, psychotic disturbance, mood disturbance, and anxiety; N40.0 Benign prostatic hyperplasia without lower urinary tract symptoms; N32.89 Other specified disorders of bladder; Z79.899 Other long term (current) drug therapy; Z98.890 Other specified postprocedural states; E88.09 Other disorders of plasma-protein metabolism, not elsewhere classified; E83.51 Hypocalcemia; E83.39 Other disorders of phosphorus metabolism
CPT/HCPCS: 36415; 36416; 51702; 71045; 71275; 74177; 74230; 76770; 80048; 80053; 80069; 80202; 81001; 82274; 82306; 82805; 83605; 83735; 83880; 84100; 84443; 84484; 85025; 86850; 86900; 86901; 87040; 87086; 93005; 94640; 96361; 96365; 96375; J0692; J2543; J3370; J3490; J7030; J7050; J7070; J7620; Q9967